=== PATIENT | male | born 1980 | race Caucasian/White ===

== ENCOUNTER 2020-04-23 06:22 | Emergency (ER) | payer MEDICARE, SELFPAY ==
[2020-04-23 07:05] VITALS: BP 150/50; PULSE 110; RESP 18; TEMP 36.9; O2SAT 95; BMI 28.2
--- NOTE | 2020-04-23 07:21 | PC.NURSE ---
PT NOT IN THE WR
== END 2020-04-23 07:50 | disposition left against medical advice (07) ==
LOC: HO.ED 07:45
PROVIDERS: Emergency Provider Emergency Medicine
DX: L08.89 Other specified local infections of the skin and subcutaneous tissue (principal)
CPT/HCPCS: 99281; 99282

== ENCOUNTER 2020-04-23 10:52 | Emergency (ER) | payer MEDICARE, SELFPAY ==
--- NOTE | ~2020-04-23 | XR_ITS ---
EXAMINATION: XR HAND, LEFT CLINICAL INFORMATION: Evaluate for foreign body COMPARISON: None TECHNIQUE: PA, lateral, and oblique views of the left hand. FINDINGS: Prominent dorsal soft tissue swelling with no soft tissue gas or radiopaque foreign body. Normal alignment with no fracture. XR/XR hand LT min 3V IMPRESSION: Prominent dorsal soft tissue swelling of the hand with no foreign body or soft tissue gas demonstrated.
[2020-04-23 10:54] VITALS: BP 145/81; PULSE 100; RESP 18; TEMP 36.7; O2SAT 97; BMI 27.4
--- NOTE | 2020-04-23 11:21 | PC.NURSE ---
ATTEMPTED TO DRAW BLOOD FROM PT. PT REFUSED AT THIS TIME.
--- NOTE | 2020-04-23 11:22 | PC.NURSE ---
PT DECLINED TO HAVE LABS DRAWN IN WR FOR UNK REASON.
[2020-04-23 12:17] LABS: MANUAL DIFF FLAG NO
[2020-04-23 12:20] LABS: Basophils Percent Auto 0.3 % (0-2); Eosinophils Absolute Auto 0.1 X10*3/uL (0.0-0.4); Eosinophils Percent Auto 1.1 % (0-4); Hematocrit 36.1 % (42-52); Hemoglobin 12.8 g/dl (14.0-18.0); Imm Gran Abs Auto 0.03 X10*3/uL (0.00-0.03); Imm Gran Pct Auto 0.2 % (0.0-0.4); Lymphocytes Absolute Auto 2.6 X10*3/uL (1.2-4.9); Lymphocytes Percent Auto 21.2 % (20-40); Mean Corpuscular HGB Conc 35.5 g/dl (31.0-36.0); Mean Corpuscular Hemoglobin 32.1 pg (27.0-33.0); Mean Corpuscular Volume 90.5 fL (80-98); Mean Platelet Volume 9.2 fL (9.4-12.4); Monocytes Absolute Auto 1.3 X10*3/uL (0.1-1.2); Monocytes Percent Auto 10.5 % (2-11); Neutrophils Absolute Auto 8.2 X10*3/uL (2.0-8.3); Neutrophils Percent Auto 66.7 % (45-73); Platelet Count 253 X10*3/uL (160-400); Red Blood Count 3.99 X10*6/uL (4.60-5.80); Red Cell Distribution Width 12.7 % (11.0-16.0); White Blood Count 12.3 X10*3/uL (4.8-10.8)
[2020-04-23 12:41] LABS: Lactic Acid 0.7 mmol/L (0.5-2.0)
[2020-04-23 12:47] LABS: Alanine Aminotransferase 33 U/L (0-40); Albumin Level 3.3 g/dL (3.5-5.0); Alkaline Phosphatase 70 U/L (39-117); Anion Gap 11 (12-20); Aspartate Amino Transferase 46 U/L (5-37); Bilirubin Direct 0.2 mg/dL (0.0-0.5); Bilirubin Total 0.4 mg/dL (0.0-1.0); Blood Urea Nitrogen 12 mg/dL (9-16); Carbon Dioxide 28 mmol/L (22-29); Chloride 103 mmol/L (96-108); Creatinine Clr Calc Pharmacy 109.2; Estimated Glomerular Filt Rate > 60; Glucose Random 108 mg/dL (60-115); Potassium 3.4 mmol/L (3.3-5.1); Sodium 139 mmol/L (135-145); Total Protein 5.9 g/dL (6.5-8.0)
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
[2020-04-23] MEDS: oxyCODONE HCl Immed Release 5 MG TABLET PO (12:59)
[2020-04-23] MEDS: Piperacillin Sodium/Tazobactam 3.375 GM in 0.9 % Sodium Chloride 50 ML IV (13:01)
[2020-04-23] MEDS: Lidocaine 4 % Cream KIT 1 APPL TOPICAL (13:02)
[2020-04-23] MEDS: Lidocaine HCl 2 % MPF 5 ML VIAL INFILTRATI (13:03)
[2020-04-23] MEDS: LORazepam 2 MG/ML VIAL IVPUSH (13:03)
[2020-04-23 13:23] VITALS: BP 152/98; PULSE 103; RESP 16; O2SAT 98
[2020-04-23] MEDS: 0.9 % Sodium Chloride 1,000 ML 999 ML IVCONT (13:35)
[2020-04-23] MEDS: vancomycin HCL 1,000 MG in 0.9 % Sodium Chloride 250 ML 270 MG IV (13:43)
--- NOTE | 2020-04-23 14:23 | PC.NURSE ---
Pt removed own IV and declining another one.
[2020-04-23] MEDS: cephALEXin 500 MG CAPSULE PO (14:32)
== END 2020-04-23 14:38 | disposition left against medical advice (07) ==
PROVIDERS: Emergency Provider Emergency Medicine
DX: L03.114 Cellulitis of left upper limb (principal); L02.512 Cutaneous abscess of left hand; S60.512A Abrasion of left hand, initial encounter; M79.642 Pain in left hand; F10.20 Alcohol dependence, uncomplicated; F11.10 Opioid abuse, uncomplicated; Y90.9 Presence of alcohol in blood, level not specified; Z79.899 Other long term (current) drug therapy; Z23 Encounter for immunization
CPT/HCPCS: 10060; 36415; 73130; 80048; 80076; 83605; 83735; 85025; 87040; 90471; 90715; 96361; 96365; 96367; 96375; 99283; 99291; J2060; J2543; J3370

== ENCOUNTER 2020-04-26 01:30 | Emergency (ER) | payer MEDICARE, SELFPAY ==
[2020-04-26 03:01] VITALS: BP 122/73; PULSE 92; RESP 20; TEMP 35.7; O2SAT 99; BMI 28.2
--- NOTE | 2020-04-26 03:09 | PC.NURSE ---
refused to start lab work in waiting room.
== END 2020-04-26 04:03 | disposition left against medical advice (07) ==
PROVIDERS: Emergency Provider Emergency Medicine
DX: M79.89 Other specified soft tissue disorders (principal)
CPT/HCPCS: 99282; 99283

== ENCOUNTER 2020-05-29 04:33 | Emergency (ER) | payer OTHER, MEDICARE, SELFPAY ==
[2020-05-29 04:40] VITALS: BP 132/82; PULSE 90; RESP 20; TEMP 36.4; O2SAT 96; BMI 27.4
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
--- NOTE | 2020-05-29 06:00 | PC.NURSE ---
PT STATES I CAN'T WAIT ANY LONGER, I NEED TO TAKE A BUS AT 6AM. PT WAS GIVEN SEVERAL CUPS OF JUICE, AND A SANDWICH. PT WAS ENCOURAGED TO STAY, PT REPORTS HE CAN'T WAIT AND WALKS OUT OF ER.
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
== END 2020-05-29 06:27 | disposition left against medical advice (07) ==
PROVIDERS: Emergency Provider Student in an Organized Health Care Education/Training Program
DX: H57.13 Ocular pain, bilateral (principal)
CPT/HCPCS: 99283

== ENCOUNTER 2021-11-28 04:45 | Emergency (ER) | payer OTHER, MEDICARE, SELFPAY ==
[2021-11-28 05:02] VITALS: BP 132/74; BP 156/88; PULSE 85; PULSE 88; RESP 19; TEMP 36.7; O2SAT 97; O2SAT 98; BMI 30.8
--- NOTE | 2021-11-28 05:14 | ED.PSYCH ---
HPI - Psych General Chief Complaint: ETOH/Substance Use Stated Complaint: CRISIS Time Seen by Provider: 11/28/21 05:13 Source: patient Mode of arrival: EMS Limitations: no limitations History of Present Illness HPI Narrative: Patient has been up smoking crack, has not slept in a while. He feels disorganized he feels that he is also agitated and seeing things. Patient feels things are out of control. complaint: substance abuse Onset (ago): week(s) Duration: constant Relieving factors: none Exacerbating factors: none Context: recent drug abuse Associated psychiatric symptoms: racing thoughts Associated symptoms: confusion Treatments prior to arrival: none Related Data Previous Rx's Medication Instructions Recorded cephalexin 500 mg capsule 500 mg PO BID 10 days #20 caps 04/23/20 doxycycline monohydrate 100 mg 100 mg PO BID 10 days #20 caps 04/23/20 capsule Allergies Allergy/AdvReac Type Severity Reaction Status Date / Time sildenafil [From VIAGRA] Allergy Mild UNKNOWN Verified 05/29/20 04:39 Penicillins [PCN] Allergy Unknown Verified 05/29/20 04:39 Review of Systems Review of Systems: Yes Unobtainable due to mental status Neurologic: Denies Sensory deficit (Neuro) COUNTS INCLUDE 234 BEDS AT THE [facility] Social History Social History Alcohol intake: current Alcohol intake frequency: 3 or more drinks per day Alcohol type: beer and hard liquor Substance Use Type: Crack/Cocaine and Marijuana Substance Use Frequency: Occasionally Physical Exam Vital Signs: Vital Signs: Last Vital Signs Temp 98.1 F 11/28/21 05:02 Pulse 93 11/28/21 07:18 Resp 17 11/28/21 07:18 BP 141/92 H 11/28/21 07:18 Pulse Ox 98 11/28/21 07:18 O2 Del Method 11/28/21 07:18 BMI result Body Mass Index 30.8 Const: Other: disorganized, unkept Nutritional Appearance: average body habitus Orientation/consciousness: oriented to person Limitations: no limitations HEENT: Head: Yes normal to inspection Ears: external ears normal General nose exam: Normal external nose present Mouth: Normal oral and palatal mucosa present and oropharynx normal Throat: Yes posterior oropharynx normal Eyes: General: appearance normal, both eyes and all related structures Neck: Other: supple Neck: Yes normal visual inspection Chest: Chest palpation & inspection: normal inspection of the chest Resp: Auscultation: clear to auscultation bilaterally Cardio: Jugular venous distension: no JVD Rate: regular rate Rhythm: regular rhythm Heart sounds: S1 normal heart sound present and S2 normal heart sound present GI: Inspection: Yes normal to inspection Palpation (GI): Soft to palpation, nontender and No hepatosplenomegaly present Auscultation: normal bowel sounds : General: Yes no CVA tenderness Back/Spine/Pelvis: Back: no CVA tenderness Skin: General skin exam: no rashes or lesions noted Neuro: General: oriented to person Cranial nerves: Yes CN's II-XII intact bilaterally Motor exam (neuro): 5/5 motor strength present throughout Sensory Exam: No Sensory deficit (Neuro) Extrem: General: Yes normal to inspection Psych: Other: disorganized slightly agitated Course Reevaluation(s) Reevaluation #1: patient to be evaluated by CARE team for substance abuse and disorganized thoughts, will place in physician observation, patient is currently calm Time: 07:29 [facility] - Psych Lab Data Labs: Lab Results 11/28/21 11/28/21 Range/Units 05:26 05:26 Urine Color Yellow Urine Appearance Cloudy Urine pH 5.5 (5.0-9.0) Ur Specific [place] >= 1.030 H (1.005-1.025) Urine Protein Trace (Neg-Trace) mg/dL Urine Glucose (UA) Negative (Negative) mg/dL Urine Ketones Trace (Negative) mg/dL Urine Blood Negative (Negative) Urine Nitrite Negative (Negative) Ur Leukocyte Esterase Trace H (Negative) Urine RBC 0-2 (0-2) /HPF Urine WBC 6-10 H (0-5) /HPF Ur Squamous Epith Cells 0-2 (0-2) /HPF Urine Bacteria None Seen (None Seen) Hyaline Casts 0-2 (0-2) /LPF Urine Opiates Screen Not Detected (Not Detect) Urine Fentanyl Screen POSITIVE H (Not Detect) Ur Barbiturates Screen Not Detected (Not Detect) Ur Phencyclidine Scrn Not Detected (Not Detect) Ur Amphetamines Screen Not Detected (Not Detect) U Benzodiazepines Scrn Not Detected (Not Detect) Urine Cocaine Screen POSITIVE H (Not Detect) U Marijuana (THC) Screen POSITIVE H (Not Detect) Discharge Plan Discharge Clinical Impression: Polysubstance (including opioids) dependence with physiol dependence, Disorganized behavior Patient Disposition: Still a Patient Prescriptions: No Action doxycycline monohydrate 100 mg capsule 100 mg PO BID 10 Days Qty: 20 0RF cephalexin 500 mg capsule 500 mg PO BID 10 Days Qty: 20 0RF
[2021-11-28 05:33] LABS: Appearance Urine Cloudy; Color Urine Yellow; Glucose Urine UA Negative (Negative); Leukocyte Esterase Urine Trace (Negative); Nitrite Urine Negative (Negative); PH 5.5 (5.0-9.0); Specific Gravity - Urine >= 1.030 (1.005-1.025); Urine Blood Negative (Negative); Urine Ketones Trace mg/dL (Negative); Urine Protein Trace mg/dL (Neg-Trace)
[2021-11-28 05:38] LABS: Bacteria Urine None Seen (None Seen); Hyaline Casts Urine 0-2 /LPF (0-2); RBC Urine 0-2 /HPF (0-2); Squamous Epithelial Cell Urine 0-2 /HPF (0-2)
[2021-11-28 05:50] LABS: Amphetamine Screen Urine Not Detected (Not Detect); Barbiturates, Urine Not Detected (Not Detect); Benzodiazepines Screen Urine Not Detected (Not Detect); Cannabinoid Screen Urine POSITIVE (Not Detect); Cocaine Screen Urine POSITIVE (Not Detect); Fentanyl, urine POSITIVE (Not Detect); Opiate Screen Urine Not Detected (Not Detect); Phencyclidine Screen Urine Not Detected (Not Detect)
--- NOTE | 2021-11-28 05:55 | PC.NURSE ---
Patient is alert to self and place. Patient is talkative, mild agitation noted. Patient declined IV line placement/blood draw despite explanation of importance of lab draw for diagnostic conclusion and need for IV line for pain management. Dr. Burkett will put order for oral pain medication to manage painful blisters to b/l feet.
--- NOTE | 2021-11-28 05:56 | PC.NURSE ---
Patient refused lab draw ,Mindy rachel and Md srinivasan is aware .
[2021-11-28 05:59] VITALS: BP 143/93; PULSE 77; RESP 17; O2SAT 98
[2021-11-28] MEDS: Acetaminophen 325 MG TABLET 975 MG PO (06:12)
--- NOTE | 2021-11-28 06:46 | PC.NURSE ---
Pt. refusing heart monitor/continues to pull leads off of his chest
[2021-11-28 07:18] VITALS: BP 141/92; PULSE 93; RESP 17; O2SAT 98
--- NOTE | 2021-11-28 08:35 | PC.NURSE ---
pt refused labs at 0726 on 11/28/2021 rn is aware
--- NOTE | 2021-11-28 09:35 | MHC.RECOVRN ---
Briefly met with pt in ED18, pt presented after using crack cocaine, INH. Pt not interested in ATS at this time. Pt inquiring about harm reduction, discussed Tapestry and safer smoking. Pt declines further discussion regarding KAM. RN aware.
== END 2021-11-28 10:04 | disposition home or self-care (01) ==
PROVIDERS: Emergency Provider Emergency Medicine
DX: F19.20 Other psychoactive substance dependence, uncomplicated (principal); F91.9 Conduct disorder, unspecified; F11.20 Opioid dependence, uncomplicated; F10.20 Alcohol dependence, uncomplicated; Y90.9 Presence of alcohol in blood, level not specified; Z79.899 Other long term (current) drug therapy
CPT/HCPCS: 80307; 81001; 99284

== ENCOUNTER 2022-06-19 12:13 | Emergency (ER) | payer MEDICARE, MEDICAID, SELFPAY ==
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
[2022-06-19 12:51] VITALS: BMI 27.4
--- NOTE | 2022-06-19 12:51 | ED.GENADULT ---
HPI - General Adult General Chief complaint: Psychiatric Symptoms Stated complaint: SEC [employer] THREATENING HARM, W/[employer] FOR SAFETY, Time Seen by Provider: 06/19/22 12:25 Source: patient and EMS Mode of arrival: EMS Limitations: no limitations History of Present Illness HPI narrative: Patient is a 42 year old assigned male at with a history of IV drug abuse presenting to the emergency department today after an argument with an individual. Patient states that he got into an argument with a woman over dog food and then ended up here. EMS states that the patient was threatening to fight police on scene. Patient denies any dizziness, lightheadedness, abdominal pain, nausea, vomiting, fever, chills, blurry vision, double vision, loss of vision, chest pain, difficulty breathing, shortness of breath, back pain, night sweats, pain with urination, increased urinary frequency, increased urinary urgency, blood in his urine or stool, syncope or a near syncopal episode, recent trauma or falls, bowel incontinence, bladder incontinence, bowel retention, bladder retention, or any other complaints at this time. Onset (ago): minute(s) Severity: moderate Severity scale (1-10): 4 Relieving factors: none Exacerbating factors: none Associated symptoms: denies other symptoms Treatments prior to arrival: none Related Data Previous Rx's Medication Instructions Recorded cephalexin 500 mg capsule 500 mg PO BID 10 days #20 caps 04/23/20 doxycycline monohydrate 100 mg 100 mg PO BID 10 days #20 caps 04/23/20 capsule Allergies Allergy/AdvReac Type Severity Reaction Status Date / Time sildenafil [From VIAGRA] Allergy Mild UNKNOWN Verified 05/29/20 04:39 Penicillins [PCN] Allergy Unknown Verified 05/29/20 04:39 Review of Systems Constitutional: Constitutional: Reports no additional constitutional complaints, Denies chills, Denies fever(s) and Denies night sweats Eyes: Eyes: Reports no additional eye complaints, Denies blurry vision, Denies change in vision, Denies diplopia, Denies eye discharge, Denies loss of vision and Denies eye pain ENT: Denies dizziness Cardiovascular: Cardiovascular: Reports no additional cardiovascular complaints, Denies chest pain, Denies lightheadedness, Denies Loss of Consciousness and Denies dyspnea Respiratory: Respiratory: Reports no additional respiratory complaints and Denies dyspnea Gastrointestinal: Gastrointestinal: Reports no additional gastrointestinal complaints, Denies abdominal pain, Denies melena, Denies hematochezia, Denies change in bowel habits and Denies change in stool character Genitourinary: Genitourinary: Reports no additional male genitourinary complaints, Denies hematuria, Denies oliguria, Denies difficulty urinating, Denies dysuria, Denies urinary frequency, Denies urinary hesitancy, Denies urinary incontinence and Denies urinary urgency Musculoskeletal: Musculoskeletal: Reports no additional musculoskeletal complaints, Denies numbness and Denies tingling Neurologic: Denies dizziness, Denies loss of vision, Denies numbness and Denies tingling Psychiatric: Psychiatric: Reports irritability and Reports homicidal ideation Endocrine: Endocrine: Reports no additional endocrine complaints Hematologic/Lymphatic: Hematologic/Lymphatic: Reports no additional hematologic/lymphatic complaints Allergic/Immunologic: Allergic/Immunologic: Reports no additional allergic/immunologic complaints [facility] Past Medical History Attestation statement: The following information was validated with the patient. Source: old records reviewed and nursing notes reviewed Social History Social History Alcohol intake: former Smoked in Last 30 Days: Yes Substance Use Type: Crack/Cocaine and Marijuana Advance Directives: No Advance Directives Information Provided: No Physical Exam ED Vital Signs: BMI result Body Mass Index 27.4 Const General: cooperative, no acute distress, alert and awake Nutritional Appearance: well nourished Orientation/consciousness: patient oriented x3 Limitations: no limitations [facility] Head: Yes normal to inspection and Yes atraumatic Ears: hearing grossly normal bilaterally and external ears normal General nose exam: Normal external nose present, no nasal discharge noted and no epistaxis Face and sinus: Yes normal facial exam, No abrasion and No laceration Mouth: Normal oral and palatal mucosa present, no drooling and no muffled voice Eyes General: appearance normal, both eyes and all related structures Periorbital: periorbital findings normal Eyelids: Yes eyelids normal Conjunctivae: conjunctivae normal Pupils: Equal, round and reactive pupils present EOM: EOMs intact bilaterally Neck Neck: Yes normal visual inspection, Yes full ROM and Yes no lymphadenopathy Chest Chest palpation & inspection: normal inspection of the chest Resp Effort & Inspection: normal respiratory effort and able to speak in complete sentences Auscultation: clear to auscultation bilaterally Cardio Rate: regular rate Rhythm: regular rhythm GI Inspection: Yes normal to inspection Palpation (GI): Soft to palpation, not firm, nontender and no guarding Neuro General: patient oriented x3 and moves all extremities Cranial nerves: Yes Equal, round and reactive pupils present Cognition (Neuro): normal cognition Motor exam (neuro): 5/5 motor strength present throughout Sensory Exam: Normal double simultaneous stimulation for sensation Coordination: [id number] test normal Extrem General: Yes normal to inspection, Yes full ROM and Yes capillary refill normal Psych Speech and movement: Normal speech and movement present Affect: Irritable affect present Attitude: Belligerent attititude/behavior present Thought process: Racing thoughts present Thought content: Homicidality present Medications Administered Discontinued Medications Generic Name Dose Route Start Last Admin Trade Name Freq PRN Reason Stop Dose Admin Haloperidol Lactate 5 mg 06/19/22 13:00 06/19/22 14:04 Haloperidol Lactate 5 Mg/Ml Vial IM 06/19/22 13:01 Not Given STAT STA Lorazepam 2 mg 06/19/22 13:10 06/19/22 13:10 Lorazepam 2 Mg/Ml Vial IM 06/19/22 13:11 2 mg STAT STA Administration Medical Decision Making Medical Decision Making [facility] Narrative: Patient is a 42 year old assigned male at with a history of IV drug use presenting to the emergency department today after an aggressive interaction. Patient's physical exam showed an obviously agitated individual with racing thoughts. Patient's blood work is pending. Patient was given IM Ativan and has continued to rest. Patient will need to be evaluated by CARE team prior to disposition. Critical Care Time Critical Care Time Critical Care Time: Yes Total Critical Care Time: 30 Attestation: I spent 30 minutes of Critical Care Time with this patient. This does not include time spent on separately reported billable procedures. Discharge Plan Discharge Clinical Impression: Acute psychosis Patient Disposition: Still a Patient Prescriptions: No Action doxycycline monohydrate 100 mg capsule 100 mg PO BID 10 Days Qty: 20 0RF cephalexin 500 mg capsule 500 mg PO BID 10 Days Qty: 20 0RF Interventions: [place]-Suicide Risk Severity Scale Last Done: 06/19/22 13:02
--- NOTE | 2022-06-19 12:56 | PC.NURSE ---
PT ARRIVED WITH ERRATIC BEHAVIOR, HYPER VERBAL
[2022-06-19] MEDS: LORazepam 2 MG/ML VIAL IM (13:10)
--- NOTE | 2022-06-19 16:59 | PC.NURSE ---
Pt remains sleeping.
--- NOTE | 2022-06-19 18:05 | PC.NURSE ---
Mother called and reports she is out of town. She claims Pt has a Hx of starting at 13 y/o. He was Dx with ADHD, Bipolar, and poly-substance abuse. She reports he was a heavy drug user, violent, verbally aggressive making raciest comments. Apparently, she had him sectioned with a criminal justice social worker and he was in a special Unit at [facility] due to pending charge. Mother wishes him to be committed because she feels he hangs out with a rough crowd and he is dangerous to others.
[2022-06-19] MEDS: OLANZapine 5 MG TABLET PO (21:38)
[2022-06-19] MEDS: LORazepam 1 MG TABLET 2 MG PO (21:38)
[2022-06-19 22:01] LABS: MANUAL DIFF FLAG NO
[2022-06-19 22:02] LABS: Basophils Absolute Auto 0.1 X10*3/uL (0.0-0.2); Basophils Percent Auto 1.3 % (0-2); Eosinophils Absolute Auto 0.8 X10*3/uL (0.0-0.4); Eosinophils Percent Auto 10.5 % (0-4); Hematocrit 46.1 % (42.0-52.0); Hemoglobin 15.3 g/dl (14.0-18.0); Imm Gran Abs Auto 0.07 X10*3/uL (0.00-0.03); Imm Gran Pct Auto 0.9 % (0.0-0.4); Lymphocytes Absolute Auto 2.6 X10*3/uL (1.2-4.9); Lymphocytes Percent Auto 34.2 % (20-40); Mean Corpuscular HGB Conc 33.2 g/dl (31.0-36.0); Mean Corpuscular Hemoglobin 29.7 pg (27.0-33.0); Mean Corpuscular Volume 89.5 fL (80.0-98.0); Mean Platelet Volume 9.7 fL (9.4-12.4); Monocytes Absolute Auto 0.9 X10*3/uL (0.1-1.2); Monocytes Percent Auto 11.8 % (2-11); Neutrophils Absolute Auto 3.1 x10*3/uL (2.0-8.3); Neutrophils Percent Auto 41.3 % (45-73); Platelet Count 318 X10*3/uL (160-400); Red Blood Count 5.15 X10*6/uL (4.60-5.80); Red Cell Distribution Width 12.2 % (11.0-16.0); White Blood Count 7.6 X10*3/uL (4.8-10.8)
[2022-06-19 22:07] LABS: COVID-19 Test Negative (Negative); IDNOW Serial# 08D9AD1C
[2022-06-19 22:19] LABS: Acetaminophen LAB < 17 mcg/mL (<30); Alanine Aminotransferase 39 U/L (0-40); Albumin Level 4.2 g/dL (3.5-5.0); Alkaline Phosphatase 81 U/L (39-117); Anion Gap 12 (12-20); Aspartate Amino Transferase 33 U/L (5-37); Bilirubin Total 0.6 mg/dL (0.0-1.0); Blood Urea Nitrogen 15 mg/dL (9-16); Calcium 9.6 mg/dL (8.4-10.2); Carbon Dioxide 29 mmol/L (22-29); Chloride 104 mmol/L (96-108); Creatinine Clr Calc Pharmacy 84.4; Estimated Glomerular Filt Rate > 60; Ethanol < 10 mg/dL; Glucose Random 101 mg/dL (60-115); Potassium 4.7 mmol/L (3.3-5.1); Salicylate < 5.0 mg/dL (15-30); Sodium 140 mmol/L (135-145); Total Protein 7.6 g/dL (6.5-8.0)
[2022-06-19 22:24] VITALS: BP 129/85; PULSE 104; RESP 20; TEMP 36.8; O2SAT 99
[2022-06-20] MEDS: LORazepam 1 MG TABLET 2 MG PO (02:14)
--- NOTE | 2022-06-20 06:24 | PC.NURSE ---
Patient slept through the night, no distress observed/reported, behavior loud and disruptive, verbally abusive without any filter, Olanzapine 5 mg po and ativan 2 mg po administered at 2138 with + effect, agreed to covid swab and blood draw, pending urine sample at this time, VSS, pending care team assessment, will continue to monitor.
[2022-06-20 06:47] VITALS: RESP 17
--- NOTE | 2022-06-20 07:13 | PC.NURSE ---
patient appears to remain asleep at present respirations are even and unlabored patient appears in no distress
[2022-06-20 12:07] LABS: Appearance Urine Cloudy; Color Urine Dark Yellow; Glucose Urine UA Negative (Negative); Leukocyte Esterase Urine Moderate (2+) (Negative); Nitrite Urine Negative (Negative); PH 6.5 (5.0-9.0); Specific Gravity - Urine >= 1.030 (1.005-1.025); UMIC TRIGGER UA YES; Urine Blood Negative (Negative); Urine Ketones Negative (Negative); Urine Protein Negative (Neg-Trace)
[2022-06-20 12:20] LABS: Amphetamine Screen Urine Not Detected (Not Detect); Barbiturates, Urine Not Detected (Not Detect); Benzodiazepines Screen Urine Not Detected (Not Detect); Cannabinoid Screen Urine POSITIVE (Not Detect); Cocaine Screen Urine POSITIVE (Not Detect); Fentanyl, urine Not Detected (Not Detect); Opiate Screen Urine Not Detected (Not Detect); Phencyclidine Screen Urine Not Detected (Not Detect)
--- NOTE | 2022-06-20 14:31 | PC.NURSE ---
Pt slept most of the day. Ate breakfast. Woke again to use the bathroom. Urine sample obtained.
[2022-06-20 14:33] LABS: Bacteria Urine None Seen (None Seen); Hyaline Casts Urine 0-2 /LPF (0-2); RBC Urine 0-2 /HPF (0-2); Squamous Epithelial Cell Urine 0-2 /HPF (0-2); WBC Urine 21-50 /HPF (0-5)
--- NOTE | 2022-06-20 15:47 | PC.NURSE ---
Pt awake, irritable edge, ambulating around pod with steady gait. Pt stating I feel normal again now, I want to go home Care team at bedside.
--- NOTE | 2022-06-20 16:14 | PC.NURSE ---
Pt irritable, perseverating on when he can leave and becoming angry when no definitive answer can be given. Awaiting dispo info at this time from CARE team. Pt repeatedly snorting and spitting into the sink. Angrily muttering racial slurs to himself.
--- NOTE | 2022-06-20 16:31 | MHC.EDTECH ---
t/w unable to perform EKG at this time d/t patient's belligerent behavior. will attempt later once patient is more calm and cooperative.
== END 2022-06-20 18:44 | disposition home or self-care (01) ==
PROVIDERS: Physician Assistant Medical; Emergency Provider Emergency Medicine Emergency Medical Services
DX: F19.10 Other psychoactive substance abuse, uncomplicated (principal); F23 Brief psychotic disorder; R45.1 Restlessness and agitation; R45.850 Homicidal ideations; Z20.822 Contact with and (suspected) exposure to COVID-19; F10.20 Alcohol dependence, uncomplicated; Y90.0 Blood alcohol level of less than 20 mg/100 ml; Z79.899 Other long term (current) drug therapy
CPT/HCPCS: 36415; 80053; 80143; 80179; 80307; 81001; 82077; 85025; 87635; 96372; 99284; 99285; J2060; S9485

== ENCOUNTER 2022-09-09 21:42 | Emergency (ER) | payer OTHER, MEDICAID, MEDICARE, SELFPAY ==
[2022-09-09 21:54] VITALS: BP 155/100; PULSE 100; RESP 20; TEMP 37.3; O2SAT 97; BMI 29.0
--- NOTE | 2022-09-09 22:28 | ED_ITS ---
HPI - Anxiety General Chief Complaint: Anxiety Stated Complaint: anxiety Time Seen by Provider: 09/09/22 22:04 History of Present Illness HPI narrative: Patient is a 47-year-old male with a history of anxiety. [place] to go to the [place]. Patient has a history of polysubstance abuse. He denies any suicidal homicidal ideation. Patient denies any chest pain no systemic complaints. Previous history of alcohol use and also history of IV drug use. Related Data Home Medications Medication Instructions Recorded Confirmed No Known Home Meds 09/10/22 09/10/22 Allergies Allergy/AdvReac Type Severity Reaction Status Date / Time sildenafil [From VIAGRA] Allergy Mild UNKNOWN Verified 05/29/20 04:39 Penicillins [PCN] Allergy Unknown Verified 05/29/20 04:39 Review of Systems Review of Systems: No chest pain or diaphoresis no focal weakness Yes all other systems are reviewed and are negative [facility] Past Medical History Attestation statement: The following information was validated with the patient. Social History Social History Alcohol intake: former Substance Use Type: Crack/Cocaine and Marijuana Advance Directives: No Advance Directives Information Provided: No Physical Exam Vital Signs: Vital Signs: Last Vital Signs Temp 98 F 09/10/22 06:06 Pulse 83 09/10/22 06:06 Resp 18 09/10/22 06:06 BP 119/79 09/10/22 06:06 Pulse Ox 95 09/10/22 06:06 O2 Del Method Room Air 09/10/22 06:06 BMI result Body Mass Index 29.0 Appearance: Alert. Oriented X3. No acute distress. Eyes: Pupils equal, round and reactive to light. ENT: Pharynx normal. Neck: Normal inspection. Neck supple. No lymph nodes noted. No crepitus CVS: Normal heart rate and rhythm. Pulses normal. Normal S1 and S2 Respiratory: No respiratory distress. Breath sounds normal. No Wheezing. No rales Abdomen: Soft and nontender. No rigidity. No distention. good BS x4 Skin: Skin warm and dry. Normal skin color. Normal skin turgor. Extremities: No lower extremity edema. Neurovascular intact to all extremities. No Lacerations. No Rash Neuro: Oriented X 3. No motor deficit. No sensory deficit. Moving all extermities. No slurred speech. Cranial nerve intact Medications Administered Discontinued Medications Generic Name Dose Route Start Last Admin Trade Name Luis PRN Reason Stop Dose Admin Lorazepam 1 mg 09/09/22 22:30 09/09/22 22:34 Lorazepam 1 Mg Tablet PO 09/09/22 22:31 1 mg ONCE ONE Administration Medical Decision Making Medical Decision Making [facility] Narrative: patient well appearing no acute distress. Not suicidal not homicidal. Feels extremely anxious. Wants to be evaluated by care team for possible transfer [place] the [place]. Differential Diagnosis Differential Diagnoses: The differential diagnosis associated with the pre sentation includes anxiety Lab Data 09/09/22 22:57 09/09/22 22:57 Labs: Lab Results 09/09/22 09/09/22 09/09/22 Range/Units 22:57 22:57 23:02 WBC 7.3 (4.8-10.8) X10*3/uL RBC 4.64 (4.60-5.80) X10*6/uL Hgb 13.9 L (14.0-18.0) g/dl Hct 39.6 L (42.0-52.0) % MCV 85.3 (80.0-98.0) fL MCH 30.0 (27.0-33.0) pg MCHC 35.1 (31.0-36.0) g/dl RDW 14.0 (11.0-16.0) % Plt Count 231 D (160-400) X10*3/uL MPV 9.0 L (9.4-12.4) fL Immature Gran % (Auto) 0.3 (0.0-0.4) % Neut % (Auto) 55.4 (45-73) % Lymph % (Auto) 31.1 (20-40) % [place] % (Auto) 10.5 (2-11) % Eos % (Auto) 1.9 (0-4) % Baso % (Auto) 0.8 (0-2) % Lymph # (Auto) 2.3 (1.2-4.9) X10*3/uL [place] # (Auto) 0.8 (0.1-1.2) X10*3/uL Eos # (Auto) 0.1 (0.0-0.4) X10*3/uL Baso # (Auto) 0.1 (0.0-0.2) X10*3/uL Abs Immat Gran (auto) 0.02 (0.00-0.03) X10*3/uL Absolute Neuts (auto) 4.0 (2.0-8.3) x10*3/uL Absolute Nucleated RBC 0.000 (0.0-0.012) X10*3/uL Nucleated RBC % (auto) 0.0 (0.0-0.2) /100WBC Sodium 137 (135-145) mmol/L Potassium 3.6 D (3.3-5.1) mmol/L Chloride 101 (96-108) mmol/L Carbon Dioxide 27 (22-29) mmol/L Anion Gap 13 (12-20) BUN 21 H (9-16) mg/dL Creatinine 0.91 (0.5-1.4) mg/dL Estim Creat Clear Calc 105.0 Estimated GFR > 60 Random Glucose 97 (60-115) mg/dL Calcium 9.6 (8.4-10.2) mg/dL Total Bilirubin 0.7 (0.0-1.0) mg/dL AST 61 H (5-37) U/L ALT 69 H (0-40) U/L Alkaline Phosphatase 99 (39-117) U/L Total Protein 7.9 (6.5-8.0) g/dL Albumin 4.2 (3.5-5.0) g/dL Urine Color Urine Appearance Urine pH (5.0-9.0) Ur Specific [place] (1.005-1.025) Urine Protein (Neg-Trace) mg/dL Urine Glucose (UA) (Negative) mg/dL Urine Ketones (Negative) mg/dL Urine Blood (Negative) Urine Nitrite (Negative) Ur Leukocyte Esterase (Negative) Urine Opiates Screen Not Detected (Not Detect) Urine Fentanyl Screen POSITIVE H (Not Detect) Ur Barbiturates Screen Not Detected (Not Detect) Ur Phencyclidine Scrn POSITIVE H (Not Detect) Ur Amphetamines Screen Not Detected (Not Detect) U Benzodiazepines Scrn Not Detected (Not Detect) Urine Cocaine Screen POSITIVE H (Not Detect) U Marijuana (THC) Screen POSITIVE H (Not Detect) Ethyl Alcohol < 10 mg/dL 09/09/22 Range/Units 23:02 WBC (4.8-10.8) X10*3/uL RBC (4.60-5.80) X10*6/uL Hgb (14.0-18.0) g/dl Hct (42.0-52.0) % MCV (80.0-98.0) fL MCH (27.0-33.0) pg MCHC (31.0-36.0) g/dl RDW (11.0-16.0) % Plt Count (160-400) X10*3/uL MPV (9.4-12.4) fL Immature Gran % (Auto) (0.0-0.4) % Neut % (Auto) (45-73) % Lymph % (Auto) (20-40) % [place] % (Auto) (2-11) % Eos % (Auto) (0-4) % Baso % (Auto) (0-2) % Lymph # (Auto) (1.2-4.9) X10*3/uL [place] # (Auto) (0.1-1.2) X10*3/uL Eos # (Auto) (0.0-0.4) X10*3/uL Baso # (Auto) (0.0-0.2) X10*3/uL Abs Immat Gran (auto) (0.00-0.03) X10*3/uL Absolute Neuts (auto) (2.0-8.3) x10*3/uL Absolute Nucleated RBC (0.0-0.012) X10*3/uL Nucleated RBC % (auto) (0.0-0.2) /100WBC Sodium (135-145) mmol/L Potassium (3.3-5.1) mmol/L Chloride (96-108) mmol/L Carbon Dioxide (22-29) mmol/L Anion Gap (12-20) BUN (9-16) mg/dL Creatinine (0.5-1.4) mg/dL Estim Creat Clear Calc Estimated GFR Random Glucose (60-115) mg/dL Calcium (8.4-10.2) mg/dL Total Bilirubin (0.0-1.0) mg/dL AST (5-37) U/L ALT (0-40) U/L Alkaline Phosphatase (39-117) U/L Total Protein (6.5-8.0) g/dL Albumin (3.5-5.0) g/dL Urine Color Yellow Urine Appearance Clear Urine pH 5.5 (5.0-9.0) Ur Specific [place] >= 1.030 H (1.005-1.025) Urine Protein Negative (Neg-Trace) mg/dL Urine Glucose (UA) Negative (Negative) mg/dL Urine Ketones Negative (Negative) mg/dL Urine Blood Negative (Negative) Urine Nitrite Negative (Negative) Ur Leukocyte Esterase Negative (Negative) Urine Opiates Screen (Not Detect) Urine Fentanyl Screen (Not Detect) Ur Barbiturates Screen (Not Detect) Ur Phencyclidine Scrn (Not Detect) Ur Amphetamines Screen (Not Detect) U Benzodiazepines Scrn (Not Detect) Urine Cocaine Screen (Not Detect) U Marijuana (THC) Screen (Not Detect) Ethyl Alcohol mg/dL Discharge Plan Discharge Clinical Impression: Acute anxiety Prescriptions: No Action No Known Home Meds
[2022-09-09] MEDS: LORazepam 1 MG TABLET PO (22:34)
[2022-09-09 23:03] LABS: MANUAL DIFF FLAG NO
[2022-09-09 23:07] LABS: Basophils Absolute Auto 0.1 X10*3/uL (0.0-0.2); Basophils Percent Auto 0.8 % (0-2); Eosinophils Absolute Auto 0.1 X10*3/uL (0.0-0.4); Eosinophils Percent Auto 1.9 % (0-4); Hematocrit 39.6 % (42.0-52.0); Hemoglobin 13.9 g/dl (14.0-18.0); Imm Gran Abs Auto 0.02 X10*3/uL (0.00-0.03); Imm Gran Pct Auto 0.3 % (0.0-0.4); Lymphocytes Absolute Auto 2.3 X10*3/uL (1.2-4.9); Lymphocytes Percent Auto 31.1 % (20-40); Mean Corpuscular HGB Conc 35.1 g/dl (31.0-36.0); Mean Corpuscular Volume 85.3 fL (80.0-98.0); Monocytes Absolute Auto 0.8 X10*3/uL (0.1-1.2); Monocytes Percent Auto 10.5 % (2-11); Neutrophils Percent Auto 55.4 % (45-73); Platelet Count 231 X10*3/uL (160-400); Red Blood Count 4.64 X10*6/uL (4.60-5.80); White Blood Count 7.3 X10*3/uL (4.8-10.8)
[2022-09-09 23:10] LABS: Appearance Urine Clear; Color Urine Yellow; Glucose Urine UA Negative (Negative); Leukocyte Esterase Urine Negative (Negative); Nitrite Urine Negative (Negative); PH 5.5 (5.0-9.0); Specific Gravity - Urine >= 1.030 (1.005-1.025); Urine Blood Negative (Negative); Urine Ketones Negative (Negative); Urine Protein Negative (Neg-Trace)
[2022-09-09 23:27] LABS: Amphetamine Screen Urine Not Detected (Not Detect); Barbiturates, Urine Not Detected (Not Detect); Benzodiazepines Screen Urine Not Detected (Not Detect); Cannabinoid Screen Urine POSITIVE (Not Detect); Cocaine Screen Urine POSITIVE (Not Detect); Fentanyl, urine POSITIVE (Not Detect); Opiate Screen Urine Not Detected (Not Detect); Phencyclidine Screen Urine POSITIVE (Not Detect)
[2022-09-09 23:35] LABS: Alanine Aminotransferase 69 U/L (0-40); Albumin Level 4.2 g/dL (3.5-5.0); Alkaline Phosphatase 99 U/L (39-117); Anion Gap 13 (12-20); Aspartate Amino Transferase 61 U/L (5-37); Bilirubin Total 0.7 mg/dL (0.0-1.0); Blood Urea Nitrogen 21 mg/dL (9-16); Calcium 9.6 mg/dL (8.4-10.2); Carbon Dioxide 27 mmol/L (22-29); Chloride 101 mmol/L (96-108); Estimated Glomerular Filt Rate > 60; Ethanol < 10 mg/dL; Glucose Random 97 mg/dL (60-115); Potassium 3.6 mmol/L (3.3-5.1); Sodium 137 mmol/L (135-145); Total Protein 7.9 g/dL (6.5-8.0)
--- NOTE | 2022-09-10 05:57 | PC.NURSE ---
Patient slept through the night, no distress observed/reported, behavior non concerning, med rec attempted/patient is currently not on any home medication, care consult ordered/pending evaluation, VSS, labs completed/resulted, will continue to monitor.
[2022-09-10 06:06] VITALS: BP 119/79; PULSE 83; RESP 18; TEMP 36.6; O2SAT 95
[2022-09-10 08:05] VITALS: BP 141/87; PULSE 93; RESP 16; TEMP 37; O2SAT 98
[2022-09-10] MEDS: LORazepam 1 MG TABLET 2 MG PO (08:24)
--- NOTE | 2022-09-10 09:53 | MHC.CARE ---
CARE team met with pt secondary to consult for anxiety. Pt presented in [facility] is known to [facility] and has a chronic history for polysubstance use. [facility] reports [facility] and [facility] himself out two days ago and relapsed on fentanyl, PCP, cocaine and cannabis. He reports he called the [facility] crisis line and [facility] to be picked [facility], however they transported him to [facility]. He reports [facility] [address] in [place], [place] as he needs to get his benefits reinstated as he has not had services and has been homeless for the past year. CARE team consulted with ED provider Dr. Burkett regarding consult and pt request get a ride to [facility] in [place], ED provider in agreement and pt to be [facility] with [facility] to [facility].
== END 2022-09-10 09:43 | disposition home or self-care (01) ==
PROVIDERS: Emergency Provider Emergency Medicine Emergency Medical Services; PCP Nurse Practitioner Family
DX: F41.1 Generalized anxiety disorder (principal); F43.0 Acute stress reaction; Z79.899 Other long term (current) drug therapy
CPT/HCPCS: 36415; 80053; 80307; 81003; 85025; 99283

== ENCOUNTER 2023-08-04 09:19 | Emergency (ER) | payer OTHER, SELFPAY ==
[2023-08-04 09:21] VITALS: BP 150/100; PULSE 70; RESP 16; TEMP 37; O2SAT 95; BMI 32.5
--- NOTE | 2023-08-04 11:04 | ED.EXTPRO ---
HPI - Extremity Problem General Chief complaint: Extremity Problem Stated complaint: blisters on feet Time Seen by Provider: 08/04/23 10:21 Source: patient Mode of arrival: ambulatory Limitations: no limitations History of Present Illness ED Provider: Lizette Reeves HPI Narrative: 43-year-old male with a history of substance use who is currently homeless presents the ER with complaints of blisters to both of his feet. Patient reports that his sneakers were tight and he walks a lot causing his blisters to occur. He denies any fevers, chills, redness, swelling, numbness, tingling. He has not interested in talking to a assistant men's lacrosse coach or any detox resources at this time. Related Data Home Medications ?Medication ?Instructions ?Recorded ?Confirmed No Known Home Meds 09/10/22 09/10/22 Allergies Allergy/AdvReac Type Severity Reaction Status Date / Time sildenafil [From VIAGRA] Allergy Mild UNKNOWN Verified 08/04/23 09:31 Penicillins [PCN] Allergy Unknown Verified 08/04/23 09:31 Review of Systems Review of Systems: Yes all other systems are reviewed and are negative Constitutional: Constitutional: Reports no additional constitutional complaints, Denies body ache(s), Denies chills, Denies fever(s), Denies headache(s) and Denies weakness Eyes: Eyes: Reports no additional eye complaints and Denies change in vision ENT: Reports system reviewed and no additional complaints, except as documented, Denies dizziness, Denies headache(s), Denies nasal congestion, Denies nasal discharge and Denies neck pain Cardiovascular: Cardiovascular: Reports no additional cardiovascular complaints, Denies chest pain, Denies leg edema and Denies dyspnea Respiratory: Respiratory: Reports no additional respiratory complaints, Denies cough and Denies dyspnea Gastrointestinal: Gastrointestinal: Reports no additional gastrointestinal complaints, Denies abdominal pain, Denies diarrhea, Denies nausea and Denies vomiting Genitourinary: Genitourinary: Denies urinary incontinence Musculoskeletal: Musculoskeletal: Reports no additional musculoskeletal complaints, Denies back pain, Denies arthralgias, Denies joint swelling, Denies neck pain, Denies numbness and Denies tingling Integumentary/Breasts: Skin/Breast: Reports system reviewed and no additional complaints, except as docu, Reports furuncle and Denies rash Neurologic: Reports system reviewed and no additional complaints, except as documented, Denies Abnormal speech present, Denies dizziness, Denies headache(s), Denies numbness, Denies tingling and Denies weakness PMFSH Past Medical History Attestation statement: The following information was validated with the patient. Source: old records reviewed and nursing notes reviewed Social History Social History Alcohol intake: former Substance Use Type: Crack/Cocaine and Marijuana Advance Directives: No Advance Directives Information Provided: No Physical Exam Vital Signs: Vital Signs: Last Vital Signs Temp 98.2 F 08/04/23 11:21 Pulse 71 08/04/23 11:21 Resp 16 08/04/23 11:21 BP 156/98 H 08/04/23 11:21 Pulse Ox 95 08/04/23 09:21 O2 Del Method Room Air 08/04/23 09:21 O2 Flow Rate 95 08/04/23 11:21 BMI result Body Mass Index 32.5 Const: General: cooperative, healthy appearing, comfortable and no acute distress Orientation/consciousness: patient oriented x3 Limitations: no limitations HEENT: Head: Yes normal to inspection Ears: hearing grossly normal bilaterally General nose exam: Normal external nose present Face and sinus: Yes normal facial exam Mouth: Normal oral and palatal mucosa present Throat: Yes posterior oropharynx normal Eyes: General: appearance normal, both eyes and all related structures Pupils: Equal, round and reactive pupils present Neck: Neck: Yes normal visual inspection Chest: Chest palpation & inspection: normal inspection of the chest Resp: Effort & Inspection: normal respiratory effort Auscultation: clear to auscultation bilaterally Cardio: Rate: regular rate Rhythm: regular rhythm Peripheral pulses: Peripheral pulses 2+ throughout GI: Inspection: Yes normal to inspection Palpation (GI): Soft to palpation and nontender Auscultation: normal bowel sounds Back/Spine/Pelvis: Thoracic/Lumbar Spine: thoracic and lumbar spine normal to inspection Skin: General skin exam: no rashes or lesions noted Neuro: General: patient oriented x3, no focal motor deficits and normal sensation to monofilament Cranial nerves: Yes Equal, round and reactive pupils present Cognition (Neuro): normal cognition Speech: No Abnormal speech present Gait exam (Neuro): Normal gait present Motor exam (neuro): 5/5 motor strength present throughout Extrem: Other: Over the soles of the feet there are 2 blisters noted on the base of the 1st toes. There are also blisters noted over the volar aspects of the 4th and 5th toes on both feet. There are is no surrounding erythema, swelling, drainage. Medications Administered Discontinued Medications Generic Name Dose Route Start Last Admin Trade Name Luis PRN Reason Stop Dose Admin Bacitracin 1 appl 08/04/23 11:07 08/04/23 11:20 Bacitracin Oint 0.9 Gm Packet TOPICAL 08/04/23 11:08 1 appl ONCE ONE Administration Protocol Medical Decision Making Medical Decision Making MDM Narrative: 43-year-old male with a history of substance use who is currently homeless presents the ER with complaints of blisters to both of his feet. Patient reports that his sneakers were tight and he walks a lot causing his blisters to occur. He denies any fevers, chills, redness, swelling, numbness, tingling. He has not interested in talking to a assistant men's lacrosse coach or any detox resources at this time. Over the soles of the feet there are 2 blisters noted on the base of the 1st toes. There are also blisters noted over the volar aspects of the 4th and 5th toes on both feet. There are is no surrounding erythema, swelling, drainage. Wound care provided by nursing. no signs of infection. recommend patient keep his feet dry and perform dressing changes as needed. Reviewed worrisome signs and symptoms of when to return to the emergency room. Comfortable plan for discharge home. Differential Diagnosis Differential Diagnoses: The differential diagnosis associated with the presentation includes Blisters no signs of infection Admission/Observation Consideration of admission/observation: Escalation of care including admission/observation considered patient with local blisters with no signs of infection. No need for antibiotics and/or admission Prescription Management I considered prescription management with: Antibiotic Discharge Plan Discharge Clinical Impression: Blisters of multiple sites Patient Disposition: Home, Self-Care Instructions: Blister (ED) Additional Instructions: warm soaks may be helpful for feet keep them dry you may use dressings to help with padding for comfort Prescriptions: No Action No Known Home Meds Referrals: Physician,Daniel J [Primary Care Provider] - 1 week Interventions: ED Discharge Assessment Last Done: 08/04/23 11:21 Discharge Date/Time: 08/04/23 11:22 Print Language: Welsh
[2023-08-04] MEDS: Bacitracin Oint 0.9 GM PACKET 1 APPL TOPICAL (11:20)
--- NOTE | 2023-08-04 11:20 | PC.NURSE ---
pts blisters medicated and bandaids applied to smaller areas and non stick/ann applied to larger areas
[2023-08-04 11:21] VITALS: BP 156/98; PULSE 71; RESP 16; TEMP 36.8
== END 2023-08-04 11:22 | disposition home or self-care (01) ==
PROVIDERS: Emergency Provider Emergency Medicine
DX: S90.422A Blister (nonthermal), left great toe, initial encounter (principal); S90.421A Blister (nonthermal), right great toe, initial encounter; S90.425A Blister (nonthermal), left lesser toe(s), initial encounter; S90.424A Blister (nonthermal), right lesser toe(s), initial encounter; S90.822A Blister (nonthermal), left foot, initial encounter; S90.821A Blister (nonthermal), right foot, initial encounter; X58.XXXA Exposure to other specified factors, initial encounter; Y93.01 Activity, walking, marching and hiking; Y92.414 Local residential or business street as the place of occurrence of the external cause; Y99.9 Unspecified external cause status; Z59.00 Homelessness unspecified
CPT/HCPCS: 99282; 99283

== ENCOUNTER 2023-08-20 18:06 | Inpatient (IN) | payer OTHER, MEDICARE, SELFPAY ==
--- NOTE | 2023-08-20 18:57 | ED_ITS ---
HPI - Psych General Chief Complaint: Psychiatric Symptoms Stated Complaint: SI SECTION 12 Time Seen by Provider: 08/20/23 18:30 Mode of arrival: ambulatory Limitations: no limitations History of Present Illness ED Provider: bienvenido LEY Narrative: Patient's history of PTSD depression substance abuse in the past comes here for been more depressed felt suicidal section 12 by therapist Related Data Home Medications ?Medication ?Instructions ?Recorded ?Confirmed No Known Home Meds 09/10/22 09/10/22 Allergies Allergy/AdvReac Type Severity Reaction Status Date / Time sildenafil [From VIAGRA] Allergy Mild UNKNOWN Verified 08/20/23 19:22 Penicillins [PCN] Allergy Unknown Verified 08/20/23 19:22 Review of Systems 2 Review of Systems: Yes all other systems are reviewed and are negative [facility] Social History Social History Alcohol intake: former Substance Use Type: Crack/Cocaine and Marijuana Advance Directives: No Advance Directives Information Provided: No Do you have a plan to hurt others: No Plan Physical Exam 2 Vital Signs: Vital Signs: Last Vital Signs Temp 98 F 08/20/23 19:16 Pulse 95 08/20/23 19:16 Resp 18 08/20/23 19:16 BP 140/88 H 08/20/23 19:16 Pulse Ox 98 08/20/23 19:16 O2 Del Method Room Air 08/20/23 19:16 BMI result Body Mass Index 30.4 Appearance: Alert. Oriented X3. No acute distress. Eyes: PERRLA, No Nystagmus ENT: Pharynx normal. Oral Mucosa moist Neck: Normal inspection. Neck supple. CVS: Normal heart rate and rhythm. Pulses normal. Respiratory: No respiratory distress. Equal air entry bilateral, no wheezing/rales/rhonchi Abdomen: Soft and nontender. Bowel sounds are present, no mass palpable, no CVA tenderness Skin: Skin warm and dry. Normal skin color. Normal skin turgor. Extremities: No lower extremity edema. No calf tenderness psych: Feels stressed out, anxious denies any SI at this time Neuro: Oriented X 3. No motor deficit. No sensory deficit.No cerebellar signs , cranial nerves II-XII intact Medications Administered Discontinued Medications Generic Name Dose Route Start Last Admin Trade Name Freq PRN Reason Stop Dose Admin Lorazepam 2 mg 08/20/23 18:57 08/20/23 19:05 Lorazepam 2 Mg/Ml Vial IM 08/20/23 18:58 2 mg ONCE ONE Administration Medical Decision Making Medical Decision Making MDM Narrative: Patient with history of PTSD, depression with suicidal feeling with history of PTSD and substance abuse will be seen by care team disposition according to their discussion likely admission Case discussed with care team will have dual diagnosis inpatient admission Lab Data [facility] Lab Attestation statement: I reviewed the patient's lab results. 08/20/23 20:53 08/20/23 20:53 Labs: Lab Results 08/20/23 08/20/23 Range/Units 20:30 20:53 WBC 8.4 (4.8-10.8) X10*3/uL RBC 4.70 (4.60-5.80) X10*6/uL Hgb 15.0 (14.0-18.0) g/dl Hct 41.7 L (42.0-52.0) % MCV 88.7 (80.0-98.0) fL MCH 31.9 (27.0-33.0) pg MCHC 36.0 (31.0-36.0) g/dl RDW 12.8 (11.0-16.0) % Plt Count 274 (160-400) X10*3/uL MPV 9.0 L (9.4-12.4) fL Immature Gran % (Auto) 0.4 (0.0-0.4) % Neut % (Auto) 63.8 (45-73) % Lymph % (Auto) 25.3 (20-40) % [place] % (Auto) 8.6 (2-11) % Eos % (Auto) 1.3 (0-4) % Baso % (Auto) 0.6 (0-2) % Lymph # (Auto) 2.1 (1.2-4.9) X10*3/uL [place] # (Auto) 0.7 (0.1-1.2) X10*3/uL Eos # (Auto) 0.1 (0.0-0.4) X10*3/uL Baso # (Auto) 0.1 (0.0-0.2) X10*3/uL Abs Immat Gran (auto) 0.03 (0.00-0.03) X10*3/uL Absolute Neuts (auto) 5.3 (2.0-8.3) x10*3/uL Absolute Nucleated RBC 0.000 (0.0-0.012) X10*3/uL Nucleated RBC % (auto) 0.0 (0.0-0.2) /100WBC Sodium 139 (135-145) mmol/L Potassium 3.5 (3.3-5.1) mmol/L Chloride 103 (96-108) mmol/L Carbon Dioxide 24 (22-29) mmol/L Anion Gap 16 (12-20) BUN 13 (9-16) mg/dL Creatinine 0.87 (0.5-1.4) mg/dL Estim Creat Clear Calc 118.5 Estimated GFR > 60 Random Glucose 99 (60-115) mg/dL Calcium 9.5 (8.4-10.2) mg/dL Total Bilirubin 0.8 (0.0-1.0) mg/dL AST 69 H (5-37) U/L ALT 91 H (0-40) U/L Alkaline Phosphatase 81 (39-117) U/L Total Protein 8.2 H (6.5-8.0) g/dL Albumin 4.3 (3.5-5.0) g/dL Urine Color Dark Yellow Urine Appearance Clear Urine pH 5.5 (5.0-9.0) Ur Specific [place] >= 1.030 H (1.005-1.025) Urine Protein Trace (Neg-Trace) mg/dL Urine Glucose (UA) Negative (Negative) mg/dL Urine Ketones Trace (Negative) mg/dL Urine Blood Negative (Negative) Urine Nitrite Negative (Negative) Ur Leukocyte Esterase Negative (Negative) Urine Opiates Screen Not Detected (Not Detect) Ur Buprenorphine Scrn Not Detected (Not Detect) ng/mL Ur Oxycodone Screen Not Detected (Not Detect) ng/mL Urine Methadone Screen Not Detected (Not Detect) ng/mL Urine Fentanyl Screen POSITIVE H (Not Detect) Ur Barbiturates Screen Not Detected (Not Detect) Ur Phencyclidine Scrn Not Detected (Not Detect) Ur Amphetamines Screen POSITIVE H (Not Detect) U Benzodiazepines Scrn Not Detected (Not Detect) Urine Cocaine Screen POSITIVE H (Not Detect) U Marijuana (THC) Screen POSITIVE H (Not Detect) Ethyl Alcohol < 10 mg/dL COVID-19 (MP) Negative (Negative) COVID-19 Clin Com See Note Discharge Plan Discharge Clinical Impression: Polysubstance (including opioids) dependence with physiol dependence, Depression with suicidal ideation, Chronic post-traumatic stress disorder Patient Disposition: Still a Patient Prescriptions: No Action No Known Home Meds Interventions: Momence-Suicide Risk Severity Scale Last Done: 08/20/23 22:16 Print Language: Upper Sorbian
[2023-08-20] MEDS: LORazepam 2 MG/ML VIAL IM (19:05)
[2023-08-20 19:16] VITALS: BP 140/88; PULSE 95; RESP 18; TEMP 36.6; O2SAT 98; BMI 30.4
--- NOTE | 2023-08-20 19:41 | PC.NURSE ---
patient on arrival to unit was newly arrived in his room, client expressed, after receiving 2mg ativsn IM per his request patient spoke to t/w 1:1 for 5 minutes wanting to express circumstances of his arrivsal, statin i dont want to hurt my mom anymore reporting recent relapse and prior failures to reach and attain matintain sobriety.t/w spoke to client for several minutes and thereafter client was approacjed by peer to get labs and urine sample done. due to moderately rude bx displayed toward peer soon thereafter talking back so to speak, it is apparent this client does not appear genuine in his pursuit of sobriety, it does not appear he has any interest other than psychotropics.
[2023-08-20 20:41] LABS: Appearance Urine Clear; Color Urine Dark Yellow; Glucose Urine UA Negative (Negative); Leukocyte Esterase Urine Negative (Negative); Nitrite Urine Negative (Negative); PH 5.5 (5.0-9.0); Specific Gravity - Urine >= 1.030 (1.005-1.025); Urine Blood Negative (Negative); Urine Ketones Trace mg/dL (Negative); Urine Protein Trace mg/dL (Neg-Trace)
[2023-08-20 20:54] LABS: Amphetamine Screen Urine POSITIVE (Not Detect); Barbiturates, Urine Not Detected (Not Detect); Benzodiazepines Screen Urine Not Detected (Not Detect); Buprenorphine Scr Not Detected (Not Detect); Cannabinoid Screen Urine POSITIVE (Not Detect); Cocaine Screen Urine POSITIVE (Not Detect); Fentanyl, urine POSITIVE (Not Detect); Methadone Screen, Urine Not Detected (Not Detect); Opiate Screen Urine Not Detected (Not Detect); Oxycodone Screen Urine Not Detected (Not Detect); Phencyclidine Screen Urine Not Detected (Not Detect)
[2023-08-20 20:57] LABS: COVID-19 Test Negative (Negative); IDNOW Serial# 08D9AD1C
[2023-08-20 20:58] LABS: MANUAL DIFF FLAG NO
[2023-08-20 20:59] LABS: Basophils Absolute Auto 0.1 X10*3/uL (0.0-0.2); Basophils Percent Auto 0.6 % (0-2); Eosinophils Absolute Auto 0.1 X10*3/uL (0.0-0.4); Eosinophils Percent Auto 1.3 % (0-4); Hematocrit 41.7 % (42.0-52.0); Imm Gran Abs Auto 0.03 X10*3/uL (0.00-0.03); Imm Gran Pct Auto 0.4 % (0.0-0.4); Lymphocytes Absolute Auto 2.1 X10*3/uL (1.2-4.9); Lymphocytes Percent Auto 25.3 % (20-40); Mean Corpuscular Hemoglobin 31.9 pg (27.0-33.0); Mean Corpuscular Volume 88.7 fL (80.0-98.0); Monocytes Absolute Auto 0.7 X10*3/uL (0.1-1.2); Monocytes Percent Auto 8.6 % (2-11); Neutrophils Absolute Auto 5.3 x10*3/uL (2.0-8.3); Neutrophils Percent Auto 63.8 % (45-73); Platelet Count 274 X10*3/uL (160-400); Red Cell Distribution Width 12.8 % (11.0-16.0); White Blood Count 8.4 X10*3/uL (4.8-10.8)
[2023-08-20 21:20] LABS: Alanine Aminotransferase 91 U/L (0-40); Albumin Level 4.3 g/dL (3.5-5.0); Alkaline Phosphatase 81 U/L (39-117); Anion Gap 16 (12-20); Aspartate Amino Transferase 69 U/L (5-37); Bilirubin Total 0.8 mg/dL (0.0-1.0); Blood Urea Nitrogen 13 mg/dL (9-16); Calcium 9.5 mg/dL (8.4-10.2); Carbon Dioxide 24 mmol/L (22-29); Chloride 103 mmol/L (96-108); Creatinine Clr Calc Pharmacy 118.5; Estimated Glomerular Filt Rate > 60; Ethanol < 10 mg/dL; Glucose Random 99 mg/dL (60-115); Potassium 3.5 mmol/L (3.3-5.1); Sodium 139 mmol/L (135-145); Total Protein 8.2 g/dL (6.5-8.0)
--- NOTE | 2023-08-21 | ECG_ITS ---
Test Reason : PROLONGED QT Blood Pressure : / mmHG Vent. Rate : 091 BPM Atrial Rate : 091 BPM P-R Int : 142 ms QRS Dur : 090 ms QT Int : 348 ms P-R-T Axes : 033 014 -14 degrees QTc Int : 428 ms Normal sinus rhythm Normal ECG When compared with ECG of 25-JUL-2018 12:17, Premature ventricular complexes are no longer Present Nonspecific T wave abnormality now evident in Lateral leads Referred By: Generic ED Physician Electronically Signed By:BULMARO GAFFNEY MD
[2023-08-21 06:21] VITALS: BP 138/90; PULSE 90; RESP 18; TEMP 36.4; O2SAT 99
--- NOTE | 2023-08-21 06:32 | PC.NURSE ---
client wakes, antagonistic trying to irritate staff, not following directions wanting to bulldoze his way into shower room where a young girl was already using the rest room. t/w requested ativan 2mg po times one for client to assist in his dysregulated mood.
[2023-08-21] MEDS: LORazepam 2 MG/ML VIAL IM (06:53)
[2023-08-21] MEDS: Haloperidol Lactate 5 MG/ML VIAL IM (06:53)
[2023-08-21 20:12] VITALS: BP 122/84; PULSE 88; RESP 17; TEMP 37.1; O2SAT 97
--- NOTE | 2023-08-22 00:40 | PC.ADMIT ---
PT IS A 43 YEAR OLD, CHINESE SPEAKING, MALE ADMITTED TO [facility] FROM [facility]. PT WAS BROUGHT IN ON A SECTION 12A AFTER TELLING HIS THERAPIST HE WANTED TO KILL HIMSELF. PT SIGNED A CONDITIONAL VOLUNTARY BEFORE ADMISSION TO THE UNIT. PT REFUSED TO SIGN ANY LEGAL FORMS WHILE ON UNIT. MOST OF HIS ADMISSION EXCEPT THE SAFETY TOOL WERE DONE FROM CRISIS ASSESSMENT. PT REPORTS NOT WANTING TO BE INPATIENT AND THOUGHT IT WOULD BE DIFFERENT. HE WAS ANGRY THAT HE HAS A ROOMMATE. PT STATED IF I JUST FLIP THE FUCK OUT YOU GUYS WILL HAVE TO LET ME GO . PT WAS REDIRECTABLE VERBALLY. HE DID NOT WANT TO ANSWER ANY QUESTIONS REGARDING PSYCH SYMPTOMS. PT STATED I SMOKED SOME CRACK AND FLIPPED OUT, HAPPENS ALL THE TIME. NO BIG DEAL . PT REPORTS HAVING PTSD FROM THE AND WILL PUNCH SOMEONE IF BOTHERED . PT REPORTS BEING TRIGGERED BY LOUD NOISES, YELLING, SLAMMING DOORS, BEING TOUCHED, AND WATCHING PEOPLE ACT OUT. PTS GAZE IS AVOIDANT. HIS TOX SCREEN WAS POSITIVE FOR COCAINE, MARIJUANA, FENTANYL, AND AMPHETAMINES. HE DENIES ALCOHOL USE AND DOES NOT APPEAR TO BE WITHDRAWING AT THIS TIME. HE IS EATING AND SLEEPING WELL. LABS WNL. EKG NORMAL SINUS RHYTHM. NO OPEN AREAS/WOUNDS. INDEPENDENT AMBULATION.
[2023-08-22] MEDS: valACYclovir HCL 500 MG TABLET PO (08:26)
[2023-08-22] MEDS: LORazepam 1 MG TABLET PO (09:35)
--- NOTE | 2023-08-22 10:02 | P.HPPS_ITS ---
HPI Date of Service: 08/22/23 Chief Complaint: SI SECTION 12 Sources of Information: patient interviewed, chart reviewed and crisis/core team assessment reviewed HPI Narrative: Patient is a 43-year-old male with history of PTSD, polysubstance abuse, antisocial personality disorder who presents for making suicidal comment. Patient is well known to this senior medical writer from numerous past admissions at the [facility]. Patient is upset that he is been admitted and refuses to sign in, saying he was never suicidal. Patient says he has been sober for the past year and relapsed this past week and was doing some Coke with girls. Patient said that he wanted to get with sobriety and so called the [facility] for help who said they would send an ambulance; he denied he said anything about suicide when he called. Patient says while waiting for the ambulance to come patient said some police showed up and since patient had been doing cocaine or had some cocaine on him, and generally feels triggered by the police, he was agitated that he was being brought to the hospital. Patient was restrained in the emergency room, sedated from restraint medications. Now on the unit, he says he does not need inpatient admission, he has not suicidal at all and never was and wants discharge. As senior medical writer approached patient he was very friendly, calm, logical and reasonable saying how much he appreciates this senior medical writer; earlier however with nursing staff he made threats about getting hostile or hitting people if he has not discharged which he denied to this senior medical writer. Per collateral, Patient's contact at the [facility] reports that patient called and made a suicidal comment about walking into traffic zone ambulance was sent; patient got tired of waiting for the ambulance and called police/EMS and said he was suicidal who then picked him up and brought him to the hospital. Past Psychiatric History: Long history of severe polysubstance abuse Minimal medication or treatment adherence Numerous inpatient hospitalizations, treatment programs Medical Evaluation Reviewed: Yes [facility] Medical History (Updated 08/22/23 @ 17:42 by Magdy Ramirez MD) Antisocial personality disorder Adjustment disorder with mixed disturbance of emotions and conduct in remission Family History: Unknown Social History: with services at the [facility] Intermittent homelessness, often stays with friends Has supportive aunt and uncle who support and tried to help him navigate sobriety Substance History: Long history of polysubstance abuse with primary focus on cocaine; does not abuse alcohol Trauma History: Trauma from over the years Diagnostics Vital Signs (24Hr): Vital Signs - 24 hr 08/21/23 20:12 Temperature 98.7 F Pulse Rate 88 Respiratory Rate 17 Blood Pressure 122/84 Pulse Oximetry 97 Oxygen Delivery Method Room Air BMI result Body Mass Index 30.4 Labs 08/20/23 20:53 08/20/23 20:53 Labs: Laboratory Results - last 48 hr 08/20/23 08/20/23 20:30 20:53 WBC 8.4 RBC 4.70 Hgb 15.0 Hct 41.7 L MCV 88.7 MCH 31.9 MCHC 36.0 RDW 12.8 Plt Count 274 MPV 9.0 L Immature Gran % (Auto) 0.4 Neut % (Auto) 63.8 Lymph % (Auto) 25.3 [place] % (Auto) 8.6 Eos % (Auto) 1.3 Baso % (Auto) 0.6 Lymph # (Auto) 2.1 [place] # (Auto) 0.7 Eos # (Auto) 0.1 Baso # (Auto) 0.1 Abs Immat Gran (auto) 0.03 Absolute Neuts (auto) 5.3 Absolute Nucleated RBC 0.000 Nucleated RBC % (auto) 0.0 Sodium 139 Potassium 3.5 Chloride 103 Carbon Dioxide 24 Anion Gap 16 BUN 13 Creatinine 0.87 Estim Creat Clear Calc 118.5 Estimated GFR > 60 Random Glucose 99 Calcium 9.5 Total Bilirubin 0.8 AST 69 H ALT 91 H Alkaline Phosphatase 81 Total Protein 8.2 H Albumin 4.3 Urine Color Dark Yellow Urine Appearance Clear Urine pH 5.5 Ur Specific [place] >= 1.030 H Urine Protein Trace Urine Glucose (UA) Negative Urine Ketones Trace Urine Blood Negative Urine Nitrite Negative Ur Leukocyte Esterase Negative Urine Opiates Screen Not Detected Ur Buprenorphine Scrn Not Detected Ur Oxycodone Screen Not Detected Urine Methadone Screen Not Detected Urine Fentanyl Screen POSITIVE H Ur Barbiturates Screen Not Detected Ur Phencyclidine Scrn Not Detected Ur Amphetamines Screen POSITIVE H U Benzodiazepines Scrn Not Detected Urine Cocaine Screen POSITIVE H U Marijuana (THC) Screen POSITIVE H Ethyl Alcohol < 10 COVID-19 (MP) Negative COVID-19 Clin Com See Note Meds/Allergies Meds Home Medications ?Medication ?Instructions ?Recorded ?Confirmed ?Type dextroamphetamine-amphetamine ER 1 cap PO QAM 08/21/23 08/21/23 History 20 mg 24hr capsule,extend release trazodone 100 mg tablet 100 mg PO BEDTIME 08/21/23 08/21/23 History valacyclovir 500 mg tablet 500 mg PO DAILY 08/21/23 08/21/23 History Allergies Allergies Allergy/AdvReac Type Severity Reaction Status Date / Time sildenafil [From VIAGRA] Allergy Mild UNKNOWN Verified 08/20/23 19:22 Penicillins [PCN] Allergy Unknown Verified 08/20/23 19:22 Mental Status Exam Mental Status Exam Narrative: Pt is alert and oriented; with senior medical writer behavior is cooperative, friendly and calm; patient is not in distress; dressed in casual attire with unkempt hair but adequate hygiene; mood is described as good and affect congruent; eye contact appropriate; Speech is normal rate, volume and prosody and not pressured; no psychomotor agitation/retardation present; thought process is organized and goal directed; Thought content is on tx; otherwise pertinent to relevant topics and without any delusional content, paranoid ideations or grandiosity; denies any SI/HI. There is no evidence of perceptual disturbance. Patients insight and judgment intact and adequate. Assessment & Plan Assessment & Plan (1) Adjustment disorder with mixed disturbance of emotions and conduct in remission: Status: Acute Code(s): F43.25 - Adjustment disorder with mixed disturbance of emotions and conduct (2) Antisocial personality disorder: Status: Acute Code(s): F60.2 - Antisocial personality disorder (3) Chronic post-traumatic stress disorder: Status: Acute Code(s): F43.12 - Post-traumatic stress disorder, chronic (4) Polysubstance (including opioids) dependence with physiol dependence: Status: Acute Code(s): F19.20 - Other psychoactive substance dependence, uncomplicated (5) ADHD: Status: Acute Code(s): F90.9 - Attention-deficit hyperactivity disorder, unspecified type Plan Patient is a 43-year-old male with history of PTSD, polysubstance abuse, antisocial personality disorder who presents for making suicidal comment. Patient is well known to this senior medical writer from numerous past admissions at the [facility]. Patient is upset that he is been admitted and refuses to sign in, saying he was never suicidal. Patient says he has been sober for the past year and relapsed this past week and was doing some Coke with girls. Patient said that he wanted [facility]; he denied he said anything about suicide when he called; patient said he was waiting for them to arrive when some police showed up and since patient had been doing cocaine or had some cocaine on him, and generally feels triggered by the police, was agitated that he was being brought to the hospital. Patient was restrained in the emergency room, sedated from restraint medications. Now on the unit, he says he does not need inpatient admission, he has not suicidal at all and never was and wants discharge. As senior medical writer approached patient he was very friendly, calm, logical and reasonable saying how much he appreciates this senior medical writer; earlier however with nursing staff he made threats about getting hostile or hitting people if he has not discharged which he denied to this senior medical writer. Per collateral, Patient's contact at the [facility] reports that patient called and made a suicidal comment about walking into traffic zone ambulance was sent; patient got tired of waiting for the ambulance and called police/EMS and said he was suicidal who then picked him up and brought him to the hospital. Patient's uncle present on the unit who reported to senior medical writer that patient has been sober for the past year because he was incarcerated, getting out of shelter about a month ago during which time he spent thousands of dollars on drug use. Impression/clinical reasoning: Patient is at baseline. He has a long history of polysubstance abuse, antisocial behaviors and resistance to treatment. Patient has no history of estela or psychosis. He does not want treatment now and wants immediate discharge; should patient change his mind, [facility] Patient also has a place to stay. He denies any suicidality at all and denies that he made a suicidal comment to anyone at the [facility] or anywhere else. He says to senior medical writer paraphrased, you know me, I am not suicidal... I don't want to hurt myself... Patient is well known to this senior medical writer and to this senior medical writer's knowledge he has never actually engaged in self-harm; he does however have a long history of making threats and adapting his story to achieve his own personal agendas. Though he denies it, It seems reasonably likely that patient did make a suicidal comment when [facility] per their report, which was in the context of coming down from a cocaine high and wanting some kind of help; however senior medical writer agrees that whatever emotional dysregulation patient was feeling at that time, it has fully resolved and that patient is not in imminent risk for harm to self or others. Patient is able to be calm and in good behavioral and impulse control at will. His thinking is logical and linear and he is organized in speech and behavior. Patient does not want treatment and is threatening to be disruptive on the unit if he is not discharge. He does not require inpatient admission for safety and will not benefit from being forced to stay on the unit against his will; rather this would be counter therapeutic for him and the rest of the milieu. Patient's request for discharge honored. Patient educated on: diagnosis, substance abuse and therapeutic strategies Informed Consent: understands Reason for continued inpatient stay Substantial Risk for: stable for discharge Statement Statement: I have reviewed the history and physical and performed a pertinent examination on my patient. No changes have occurred unless specified. If the History and Physical was not performed prior to admission, the Hospitalist's service will be consulted for completing the admission physical. Time Spent With Patient Time: Total time managing care of this patient today ____ minutes.
--- NOTE | 2023-08-22 10:22 | P.DS_ITS ---
DS: Providers Provider Date of Service: 08/22/23 Date of admission: 08/21/23 17:30 Date of discharge: 08/22/23 Primary care physician: Unknown Physician Attending physician on admission: Magdy Ramirez Attending physician on discharge: Magdy Ramirez DS: Medications Discharge Medications Home Medications: Home Medications ?Medication ?Instructions ?Recorded ?Confirmed dextroamphetamine-amphetamine ER 1 cap PO QAM 08/21/23 08/21/23 20 mg 24hr capsule,extend release trazodone 100 mg tablet 100 mg PO BEDTIME 08/21/23 08/21/23 valacyclovir 500 mg tablet 500 mg PO DAILY 08/21/23 08/21/23 Mental Status Exam Mental Status Exam Narrative: Pt is alert and oriented; with pattern chart writer behavior is cooperative, friendly and calm; with other staff, irritable and threatening; patient is not in distress; dressed in casual attire with unkempt hair but adequate hygiene; mood is described as good and affect congruent; eye contact appropriate; Speech is normal rate, volume and prosody and not pressured; no psychomotor agitation/retardation present; thought process is organized and goal directed; Thought content is on tx; otherwise pertinent to relevant topics and without any delusional content, paranoid ideations or grandiosity; denies any SI/HI. There is no evidence of perceptual disturbance. Patients insight and judgment intact and adequate. Data Data Completed and Pending Completed studies during hospitalization [Text1]: 08/20/23 08/20/23 20:30 20:53 WBC 8.4 RBC 4.70 Hgb 15.0 Hct 41.7 L MCV 88.7 MCH 31.9 MCHC 36.0 RDW 12.8 Plt Count 274 MPV 9.0 L Immature Gran % (Auto) 0.4 Neut % (Auto) 63.8 Lymph % (Auto) 25.3 [place] % (Auto) 8.6 Eos % (Auto) 1.3 Baso % (Auto) 0.6 Lymph # (Auto) 2.1 [place] # (Auto) 0.7 Eos # (Auto) 0.1 Baso # (Auto) 0.1 Abs Immat Gran (auto) 0.03 Absolute Neuts (auto) 5.3 Absolute Nucleated RBC 0.000 Nucleated RBC % (auto) 0.0 Sodium 139 Potassium 3.5 Chloride 103 Carbon Dioxide 24 Anion Gap 16 BUN 13 Creatinine 0.87 Estim Creat Clear Calc 118.5 Estimated GFR > 60 Random Glucose 99 Calcium 9.5 Total Bilirubin 0.8 AST 69 H ALT 91 H Alkaline Phosphatase 81 Total Protein 8.2 H Albumin 4.3 Urine Color Dark Yellow Urine Appearance Clear Urine pH 5.5 Ur Specific [place] >= 1.030 H Urine Protein Trace Urine Glucose (UA) Negative Urine Ketones Trace Urine Blood Negative Urine Nitrite Negative Ur Leukocyte Esterase Negative Urine Opiates Screen Not Detected Ur Buprenorphine Scrn Not Detected Ur Oxycodone Screen Not Detected Urine Methadone Screen Not Detected Urine Fentanyl Screen POSITIVE H Ur Barbiturates Screen Not Detected Ur Phencyclidine Scrn Not Detected Ur Amphetamines Screen POSITIVE H U Benzodiazepines Scrn Not Detected Urine Cocaine Screen POSITIVE H U Marijuana (THC) Screen POSITIVE H Ethyl Alcohol < 10 COVID-19 (MP) Negative COVID-19 Clin Com See Note DS: Summary Hospital Course Hospital Course: Patient is a 43-year-old male with history of PTSD, polysubstance abuse, antisocial personality disorder who presents for making suicidal comment. Patient is well known to this pattern chart writer from [facility]. Patient is upset that he is been admitted and refuses to sign in, saying he was never suicidal. Patient says he has been sober for the past year and relapsed this past week and was doing some Coke with girls. Patient said that he wanted to get with [facility] and [facility]; he denied he said anything about suicide when he called; patient said he was waiting for them to arrive when some police showed up and since patient had been doing cocaine or had some cocaine on him, and generally feels triggered by the police, was agitated that he was being brought to the hospital. Patient was restrained in the emergency room, sedated from restraint medications. Now on the unit, he says he does not need inpatient admission, he has not suicidal at all and never was and wants discharge. As pattern chart writer approached patient he was very friendly, calm, logical and reasonable saying how much he appreciates this pattern chart writer; earlier however with nursing staff he made threats about getting hostile or hitting people if he has not discharged which he denied to this pattern chart writer. Per collateral, [facility] contact at the [facility] reports that patient called and made a suicidal comment about walking into traffic zone ambulance was sent; patient got tired of waiting for the ambulance and called police/EMS and said he was suicidal who then picked him up and brought him to the hospital. Patient's uncle present on the unit who reported to pattern chart writer that patient has been sober for the past year because he was incarcerated, getting out of [facility] about a month ago during which time he spent thousands of dollars on drug use. Impression/clinical reasoning: Patient is at baseline. He has a long history of polysubstance abuse, antisocial behaviors and resistance to treatment. Patient has no history of estela or psychosis. He does not want treatment now and wants immediate discharge; should patient change his mind, he already has providers at the [facility]. Patient also has a place to stay. He denies any suicidality at all and denies that he made a suicidal comment to anyone at the [facility] or anywhere else. He says to pattern chart writer paraphrased, you know me, I am not suicidal... I don't want to hurt myself... Patient is well known to this pattern chart writer and to this pattern chart writer's knowledge he has never actually engaged in self-harm; he does however have a long history of making threats and adapting his story to achieve his own personal agendas. Though he denies it, It seems reasonably likely that patient did make a suicidal comment when [facility] per their [facility], which was in the context of coming down from a cocaine high and wanting some kind of help; however pattern chart writer agrees that whatever emotional dysregulation patient was feeling at that time, it has fully resolved and that patient is not in imminent risk for harm to self or others. Patient is able to be calm and in good behavioral and impulse control at will. His thinking is logical and linear and he is organized in speech and behavior. Patient does not want treatment and is threatening to be disruptive on the unit if he is not discharge. He does not require inpatient admission for safety and will not benefit from being forced to stay on the unit against his will; rather this would be counter therapeutic for him and the rest of the milieu. Patient's request for discharge honored. Time spent discussing smoking cessation with patient: 3 to 10 minutes Status at Discharge Functional status at discharge: independent ambulation Overall status at discharge: patient is back to baseline Time Spent with Patient Time attestation: Total time managing care of this patient today __40__ minutes. Time spent: Greater than 30 minutes Discharge Plan Discharge Anticipated Discharge Date/Time: 08/22/23 10:21 Patient Disposition: Prison Discharge Diagnosis: Adjustment disorder with disturbance of mood, behavior, in full remission Referrals: Physician,Daniel J [Primary Care Provider] - 1 Week Discharge Medications: Continued valacyclovir 500 mg tablet 500 mg PO DAILY dextroamphetamine-amphetamine 20 mg capsule,extended release 24hr 1 cap PO QAM trazodone 100 mg tablet 100 mg PO BEDTIME Discontinued naltrexone 50 mg tablet 50 mg PO DAILY Discharge Orders: Discharge Order (Routine); Ordered 08/22/23 Ordered By: Magdy Ramirez Diet: Regular diet Activity on Discharge: As tolerated Stand Alone Forms: Patient Portal Discharge page, Community Support Print Language: Welsh Care Plan Goals: Maintain mood and safe behaviors Take medications as prescribed Continue to pursue sobriety Practice coping skills Continue with outpatient providers and reach out to them as needed Health Concerns: Mood stability and behaviors Sobriety Plan of Treatment: Follow up with your PCP, psychiatric provider and other outpatient providers regarding above concerns Assessment: Risk assessment at time of discharge:? Patient was interviewed prior to disch arge and found to be fully oriented and without any SI or HI. Patient has improved insight and judgment and wants to continue treatment. Patient is not in imminent risk of harm to self or others and has a safety plan that includes presenting to the closest ER or calling 911 if feeling unsafe.? Patient has been observed closely by nursing and unit staff throughout admission and is not in imminent risk for harm to self or others Discharge Date/Time: 08/22/23 11:04
[2023-08-22] MEDS: Naloxone HCl Nasal TAKE HOME 4 MG SPRAY 8 MG NOSTRILALT (11:05)
== END 2023-08-22 11:04 | disposition home or self-care (01) | DRG 882 ==
LOC: HO.ED 08-21 07:41 → HO.PM5 08-21 18:27
PROVIDERS: Admitting Provider Psychiatry & Neurology Psychiatry; Emergency Provider Internal Medicine; Visit Provider Psychiatry & Neurology Psychiatry
DX: F43.25 Adjustment disorder with mixed disturbance of emotions and conduct (principal); F19.20 Other psychoactive substance dependence, uncomplicated; F43.12 Post-traumatic stress disorder, chronic; F60.2 Antisocial personality disorder; F90.9 Attention-deficit hyperactivity disorder, unspecified type; Z20.822 Contact with and (suspected) exposure to COVID-19; Z79.899 Other long term (current) drug therapy
CPT/HCPCS: 80053; 80307; 81003; 85025; 87635; 93005; 99285; J1630; J2060; S9485

== ENCOUNTER → 2023-08-21 16:52 | Outpatient (BNV) | payer OTHER, SELFPAY | PROVIDERS: Admitting Provider Psychiatry & Neurology Psychiatry; Emergency Provider Internal Medicine; Visit Provider Internal Medicine Cardiovascular Disease | DX: F43.12 Post-traumatic stress disorder, chronic (principal); F32.A Depression, unspecified | CPT/HCPCS: 93010 ==

== ENCOUNTER → 2023-08-21 17:30 | Outpatient (BNV) | payer OTHER, SELFPAY | PROVIDERS: Admitting Provider Psychiatry & Neurology Psychiatry; Emergency Provider Internal Medicine; Visit Provider Psychiatry & Neurology Psychiatry | DX: F60.2 Antisocial personality disorder (principal); F19.20 Other psychoactive substance dependence, uncomplicated; F43.25 Adjustment disorder with mixed disturbance of emotions and conduct; F43.12 Post-traumatic stress disorder, chronic; F90.9 Attention-deficit hyperactivity disorder, unspecified type | CPT/HCPCS: 99234; 99499 ==

== ENCOUNTER 2023-10-11 12:44 | Emergency (ER) | payer OTHER, SELFPAY ==
[2023-10-11 12:55] VITALS: BP 160/70; PULSE 96; O2SAT 98
[2023-10-11 12:59] VITALS: BP 139/94; PULSE 99; RESP 18; TEMP 36.5; O2SAT 99; BMI 29.0
--- NOTE | 2023-10-11 13:03 | ED_ITS ---
HPI - Psych General Chief Complaint: Psychiatric Symptoms Stated Complaint: CRISIS Time Seen by Provider: 10/11/23 12:51 Source: patient Mode of arrival: EMS Limitations: other (under the influence. ) History of Present Illness ED Provider: SHAILESH HPI Narrative: 43 yo male with PMH of adjustment disorder, anti social personality disorder, substance abuse, PTSD here with c/o needing to talk to CARE team as [facility] - recently just last used cocaine and drank. He has no SI/HI. He states he tried to get in but it didn't work out [facility]. [place] historian complaint: substance abuse and alcohol abuse Onset (ago): year(s) Duration: constant History of same: Yes Relieving factors: none Exacerbating factors: alcohol and drug use Context: recent alcohol abuse and recent drug abuse Associated psychiatric symptoms: none Associated symptoms: denies other symptoms Related Data Home Medications ?Medication ?Instructions ?Recorded ?Confirmed dextroamphetamine-amphetamine ER 1 cap PO QAM 08/21/23 08/21/23 20 mg 24hr capsule,extend release trazodone 100 mg tablet 100 mg PO BEDTIME 08/21/23 08/21/23 valacyclovir 500 mg tablet 500 mg PO DAILY 08/21/23 08/21/23 Allergies Allergy/AdvReac Type Severity Reaction Status Date / Time sildenafil [From VIAGRA] Allergy Mild UNKNOWN Verified 10/11/23 13:05 Penicillins [PCN] Allergy Unknown Verified 10/11/23 13:05 Review of Systems 2 Review of Systems: Constitutional : No Fever, No Chills ENT/Mouth : No Ear Pain, No Nasal Congestion, No sore throat Eyes: No Eye Pain, No Swelling, No Redness Cardiovascular : No Chest Pain, No SOB Respiratory : No Cough, No Sputum, No Dyspnea Gastrointestinal : No Nausea, No Vomiting, No Diarrhea, No Hematochezia, No Melena Genitourinary : No Dysuria, No Urinary Frequency, No Hematuria Musculoskeletal : No Myalgias Skin : No Skin Lesions, No rash Neuro : No Weakness, No Numbness, No Paresthesias, No Dizziness, No Headache Psych : positive Anxiety, positive Depression, no SI/HI All other systems reviewed and are negative [facility] Past Medical History Attestation statement: The following information was validated with the patient. Source: old records reviewed Medical History Antisocial personality disorder Adjustment disorder with mixed disturbance of emotions and conduct in remission Social History Social History Household Members: None Housing: Homeless Do you presently have visiting nurse or other home services: No Alcohol intake: former Patient Tobacco Use Status: Never used Tobacco Smoked in Last 30 Days: No e-Cigarette/Vaping Use: Never Used Second Hand Smoke Exposure: No Use of substances other than those prescribed or required for medical reasons: Yes Substance Use Type: Marijuana Advance Directives: No Advance Directives Information Provided: Yes Do you have a plan to hurt others: No Plan Physical Exam 2 Vital Signs: Vital Signs: Last Vital Signs Temp 97.7 F 10/11/23 13:09 Pulse 99 10/11/23 13:09 Resp 18 10/11/23 13:09 BP 139/94 H 10/11/23 13:09 Pulse Ox 99 10/11/23 13:09 O2 Del Method Room Air 10/11/23 13:09 BMI result Body Mass Index 29.0 Appearance: sleepy easily woken appears under the influence. Oriented X3. No acute distress. Eyes: Pupils equal, round and reactive to light. ENT: Pharynx normal. atraumatic Neck: Normal inspection. Neck supple. CVS: Normal heart rate and rhythm. Pulses normal. Respiratory: No respiratory distress. Breath sounds normal. Abdomen: Soft and nontender. Skin: Skin warm and dry. Normal skin color. Normal skin turgor. Extremities: No lower extremity edema. No calf ttp Neuro: Oriented X 3. No motor deficit. No sensory deficit. CN2-12 intact Medical Decision Making Medical Decision Making MDM Narrative: 43 yo male with PMH of adjustment disorder, anti social personality disorder, substance abuse, PTSD here with c/o needing to talk to crisis for what sounds like clearance [facility] to [facility] and drug use - at this time labs, CARE team consult ordered. He denies SI/HI. Differential Diagnosis Differential Diagnoses: The differential diagnosis associated with the presentation includes drug abuse, alcohol abuse Admission/Observation Consideration of admission/observation: Escalation of care including admission/observation considered physician observation started at 157pm pending CARE team assessment Consult Healthcare Provider Management of the patient was discussed with: Behavioral Health Provider Lab Data [facility] Lab Attestation statement: I reviewed the patient's lab results. 10/11/23 14:15 10/11/23 14:15 Labs: Lab Results 10/11/23 10/11/23 Range/Units 13:00 14:15 WBC 5.5 (4.8-10.8) X10*3/uL RBC 4.42 L (4.60-5.80) X10*6/uL Hgb 14.0 (14.0-18.0) g/dl Hct 39.7 L (42.0-52.0) % MCV 89.8 (80.0-98.0) fL MCH 31.7 (27.0-33.0) pg MCHC 35.3 (31.0-36.0) g/dl RDW 12.9 (11.0-16.0) % Plt Count 237 (160-400) X10*3/uL MPV 9.1 L (9.4-12.4) fL Immature Gran % (Auto) 0.2 (0.0-0.4) % Neut % (Auto) 65.2 (45-73) % Lymph % (Auto) 23.8 (20-40) % Sanborn % (Auto) 8.5 (2-11) % Eos % (Auto) 1.6 (0-4) % Baso % (Auto) 0.7 (0-2) % Lymph # (Auto) 1.3 (1.2-4.9) X10*3/uL [place] # (Auto) 0.5 (0.1-1.2) X10*3/uL Eos # (Auto) 0.1 (0.0-0.4) X10*3/uL Baso # (Auto) 0.0 (0.0-0.2) X10*3/uL Abs Immat Gran (auto) 0.01 (0.00-0.03) X10*3/uL Absolute Neuts (auto) 3.6 (2.0-8.3) x10*3/uL Absolute Nucleated RBC 0.000 (0.0-0.012) X10*3/uL Nucleated RBC % (auto) 0.0 (0.0-0.2) /100WBC Sodium 141 (135-145) mmol/L Potassium 3.7 (3.3-5.1) mmol/L Chloride 106 (96-108) mmol/L Carbon Dioxide 25 (22-29) mmol/L Anion Gap 14 (12-20) BUN 15 (9-16) mg/dL Creatinine 0.86 (0.5-1.4) mg/dL Estim Creat Clear Calc 109.9 Estimated GFR > 60 Random Glucose 119 H (60-115) mg/dL Calcium 9.7 (8.4-10.2) mg/dL Total Bilirubin 0.4 (0.0-1.0) mg/dL Direct Bilirubin 0.2 (0.0-0.5) mg/dL AST 47 H (5-37) U/L ALT 49 H (0-40) U/L Alkaline Phosphatase 86 (39-117) U/L Total Protein 7.7 (6.5-8.0) g/dL Albumin 4.0 (3.5-5.0) g/dL Urine Color Dark Yellow Urine Appearance Clear Urine pH 6.0 (5.0-9.0) Ur Specific Mat[place] >= 1.030 H (1.005-1.025) Urine Protein 100 (2+) H (Neg-Trace) mg/dL Urine Glucose (UA) Negative (Negative) mg/dL Urine Ketones 40 (Negative) mg/dL Urine Blood Negative (Negative) Urine Nitrite Negative (Negative) Ur Leukocyte Esterase Negative (Negative) Urine RBC 0-2 (0-2) /HPF Urine WBC 0-5 (0-5) /HPF Ur Squamous Epith Cells 0-2 (0-2) /HPF Urine Bacteria None Seen (None Seen) Hyaline Casts 11-20 (0-2) /LPF Urine Opiates Screen Not Detected (Not Detect) Ur Buprenorphine Scrn Not Detected (Not Detect) ng/mL Ur Oxycodone Screen Not Detected (Not Detect) ng/mL Urine Methadone Screen Not Detected (Not Detect) ng/mL Urine Fentanyl Screen POSITIVE H (Not Detect) Ur Barbiturates Screen Not Detected (Not Detect) Ur Phencyclidine Scrn Not Detected (Not Detect) Ur Amphetamines Screen Not Detected (Not Detect) U Benzodiazepines Scrn POSITIVE H (Not Detect) Urine Cocaine Screen POSITIVE H (Not Detect) U Marijuana (THC) Screen POSITIVE H (Not Detect) Ethyl Alcohol < 10 mg/dL External Record Review External record reviewed: Inpatient record Social Determinants Patient?s care significantly limited by Social Determinants of Health including: Problems related to primary support group Discharge Plan Discharge Clinical Impression: EtOH dependence, Cocaine abuse Patient Disposition: Still a Patient Prescriptions: No Action valacyclovir 500 mg tablet 500 mg PO DAILY dextroamphetamine-amphetamine 20 mg capsule,extended release 24hr 1 cap PO QAM trazodone 100 mg tablet 100 mg PO BEDTIME Interventions: [place]-Suicide Risk Severity Scale Last Done: 10/11/23 13:06 Print Language: Citizen [place]
[2023-10-11 13:09] VITALS: BP 139/94; PULSE 99; RESP 18; TEMP 36.5; O2SAT 99
[2023-10-11 13:15] LABS: Appearance Urine Clear; Color Urine Dark Yellow; Glucose Urine UA Negative (Negative); Leukocyte Esterase Urine Negative (Negative); Nitrite Urine Negative (Negative); Specific Gravity - Urine >= 1.030 (1.005-1.025); UMIC TRIGGER UACC YES; Urine Blood Negative (Negative); Urine Ketones 40 mg/dL (Negative); Urine Protein 100 (2+) mg/dL (Neg-Trace)
[2023-10-11 13:22] LABS: Amphetamine Screen Urine Not Detected (Not Detect); Barbiturates, Urine Not Detected (Not Detect); Benzodiazepines Screen Urine POSITIVE (Not Detect); Buprenorphine Scr Not Detected (Not Detect); Cannabinoid Screen Urine POSITIVE (Not Detect); Cocaine Screen Urine POSITIVE (Not Detect); Fentanyl, urine POSITIVE (Not Detect); Methadone Screen, Urine Not Detected (Not Detect); Opiate Screen Urine Not Detected (Not Detect); Oxycodone Screen Urine Not Detected (Not Detect); Phencyclidine Screen Urine Not Detected (Not Detect)
[2023-10-11 13:47] LABS: Bacteria Urine None Seen (None Seen); RBC Urine 0-2 /HPF (0-2); Squamous Epithelial Cell Urine 0-2 /HPF (0-2); WBC Urine 0-5 /HPF (0-5)
[2023-10-11 14:20] LABS: MANUAL DIFF FLAG NO
[2023-10-11 14:21] LABS: Basophils Percent Auto 0.7 % (0-2); Eosinophils Absolute Auto 0.1 X10*3/uL (0.0-0.4); Eosinophils Percent Auto 1.6 % (0-4); Hematocrit 39.7 % (42.0-52.0); Imm Gran Abs Auto 0.01 X10*3/uL (0.00-0.03); Imm Gran Pct Auto 0.2 % (0.0-0.4); Lymphocytes Absolute Auto 1.3 X10*3/uL (1.2-4.9); Lymphocytes Percent Auto 23.8 % (20-40); Mean Corpuscular HGB Conc 35.3 g/dl (31.0-36.0); Mean Corpuscular Hemoglobin 31.7 pg (27.0-33.0); Mean Corpuscular Volume 89.8 fL (80.0-98.0); Mean Platelet Volume 9.1 fL (9.4-12.4); Monocytes Absolute Auto 0.5 X10*3/uL (0.1-1.2); Monocytes Percent Auto 8.5 % (2-11); Neutrophils Absolute Auto 3.6 x10*3/uL (2.0-8.3); Neutrophils Percent Auto 65.2 % (45-73); Platelet Count 237 X10*3/uL (160-400); Red Blood Count 4.42 X10*6/uL (4.60-5.80); Red Cell Distribution Width 12.9 % (11.0-16.0); White Blood Count 5.5 X10*3/uL (4.8-10.8)
[2023-10-11 14:42] LABS: Alanine Aminotransferase 49 U/L (0-40); Alkaline Phosphatase 86 U/L (39-117); Anion Gap 14 (12-20); Aspartate Amino Transferase 47 U/L (5-37); Bilirubin Direct 0.2 mg/dL (0.0-0.5); Bilirubin Total 0.4 mg/dL (0.0-1.0); Blood Urea Nitrogen 15 mg/dL (9-16); Calcium 9.7 mg/dL (8.4-10.2); Carbon Dioxide 25 mmol/L (22-29); Chloride 106 mmol/L (96-108); Creatinine Clr Calc Pharmacy 109.9; Estimated Glomerular Filt Rate > 60; Ethanol < 10 mg/dL; Glucose Random 119 mg/dL (60-115); Potassium 3.7 mmol/L (3.3-5.1); Sodium 141 mmol/L (135-145); Total Protein 7.7 g/dL (6.5-8.0)
[2023-10-11] MEDS: LORazepam 1 MG TABLET 2 MG PO (17:16)
--- NOTE | 2023-10-11 22:53 | MHC.CARE ---
No Dual beds available, bed search is exhausted for tonight
[2023-10-12] MEDS: LORazepam 1 MG TABLET 2 MG PO ×3 (05:21→21:24)
--- NOTE | 2023-10-12 05:24 | PC.NURSE ---
Patient slept through the night, no distress observed/reported except CIWA score was 13 administered Ativan 2 mg PO as ordered at 0521 pending effect, patient was assessed by care team, disposition is voluntary dual diagnosis bed search, no behavior and safety concerns, will continue to monitor.
[2023-10-12 05:32] VITALS: BP 127/79; PULSE 61; RESP 18; TEMP 37.1; O2SAT 99
--- NOTE | 2023-10-12 08:04 | PC.NURSE ---
Assumed care of patient at 0645, patient appears to be sleeping, respirations even and unlabored, no apparent distress noted. Continue plan of care for dual dx bedsearch
--- NOTE | 2023-10-12 11:42 | PC.NURSE ---
Patient requesting something to help him sleep, he is also reporting increased agitation and requesting medication for it. Patient demanding to know what is going on and what the next steps are. This RN calmly explained that we are waiting for a dual bed to open up. He reports well it better be a nice facility, [facility], I ain't going to no [facility] . I'm withdrawin, I'm just gonna go do crack and drink with prostitutes . Patient reporting that he needs something to knock him out since he needs to sleep . Patient once again relays that he wants to go to a nice facility with good services . This RN educated patient that any of the facilities we send him to are capable of caring for him in the any capacity that is needed. Patient continues to make rude remarks under his breath as he walks away from nurses station. Marlen, CARE team met with patient briefly to provide update on situation
[2023-10-12] MEDS: hydrOXYzine HCL 50 MG TABLET PO (11:53)
--- NOTE | 2023-10-12 11:57 | PC.NURSE ---
patient reports hydroxyzine dont work on me, I need somethin stronger . Patient took medication, laid back down and now appears to be in no apparent distress
--- NOTE | 2023-10-12 12:05 | MHC.CARE ---
Form Setter/Driver conducted Dual Bedsearch; calls placed to [facility], and [facility]. No beds available. [facility]. Bedsearch exhausted
[2023-10-12 21:25] VITALS: BP 146/97; PULSE 107; RESP 18; TEMP 36.6; O2SAT 97
--- NOTE | 2023-10-13 06:06 | PC.NURSE ---
Patient slept through the night, no distress observed/reported, disposition per care team is voluntary dual diagnosis bed search, asymptomatic of ETOH withdrawal at this time, no behavior and safety concerns, will continue to monitor.
[2023-10-13 06:24] VITALS: BP 143/88; PULSE 85; RESP 17; TEMP 36.5; O2SAT 99
[2023-10-13] MEDS: LORazepam 1 MG TABLET 2 MG PO ×3 (07:07→17:54)
--- NOTE | 2023-10-13 08:56 | PC.NURSE ---
patient comes up to the nurses station stating I am very unimpressed with everything, I am not happy about the food and I want to see a doctor . This RN expressed and apology regarding his upset and asked if there was anything we could do to help. patient states that his main concern is not getting good food. This RN educated patient that we get a certain set of meals and diet trays and while we are capable of calling the kitchen to request certain meals, it is not realistic to cater to every individual person's preferences. Patient returned to his room but re-emerged from his room disgruntled. Patient expressed that he was frustrated that he has not received breakfast, this RN educated patient that he already received breakfast (prior to this RN coming in) and that he had eaten half of it. Patient returned to his room and became angry that his food as cold. This RN explained once again that he had eaten half of his breakfast and the other half was left on the tray for over an hour. patient states well I think that it ridiculous that we get cold food and it tastes like crap , patient then proceeded to toss his food on the table. Patient then stated I just want to be sedated and not wake up to shit food This RN educated patient that the responsibility of the care team is not to sedate him but to manage his withdrawals. This RN educated pt that his CIWA scores have been in an acceptable range where Ativan appears to be covering withdrawal symptoms and further medication is not medically necessary at this time, should that change, the plan of care will change but over the past two days, 2mg Ativan PRN Q3h has been working well. Patient verbalizes understanding that our job is not to sedate him but to treat his withdrawals.
[2023-10-13] MEDS: hydrOXYzine HCL 50 MG TABLET PO (09:11)
--- NOTE | 2023-10-13 09:17 | PC.NURSE ---
late entry: Patient politely requesting additional medication to calm his anxiety, Atarax 50mg provided
[2023-10-13 14:44] VITALS: RESP 14
[2023-10-13] MEDS: Nicotine Polacrilex 2 MG GUM BUCCAL (20:00)
--- NOTE | 2023-10-13 20:02 | PC.NURSE ---
pt requested nicotine gum, dr. garrett notified and gave verbal orders to medicate patient- nicotine patch was also ordered if he wants the patch at a later time.
[2023-10-13] MEDS: traZODone HCL 100 MG TABLET PO (20:26)
--- NOTE | 2023-10-13 20:28 | PC.NURSE ---
pt requested his trazodone, provider notified, order placed based upon pts med req- pt medicated per order
--- NOTE | 2023-10-13 21:14 | PC.NURSE ---
this rn assumed care of pt, pt resting in common area watching tv at this time. respirations even and unlabored, no acute distress noted.
--- NOTE | 2023-10-13 21:26 | PC.NURSE ---
pt provided with snacks per request at this time.
--- NOTE | 2023-10-14 | ECG_ITS ---
Test Reason : CHECK QT INTEVAL Blood Pressure : / mmHG Vent. Rate : 089 BPM Atrial Rate : 089 BPM P-R Int : 134 ms QRS Dur : 088 ms QT Int : 332 ms P-R-T Axes : 013 003 -05 degrees QTc Int : 403 ms Normal sinus rhythm Normal ECG When compared with ECG of 21-AUG-2023 16:52, No significant change was found Referred By: Generic ED Physician Electronically Signed By:Nadeem Meyer
--- NOTE | 2023-10-14 05:39 | PC.NURSE ---
pt resting in common area, no acute distress noted. respirations even and unlabored.
[2023-10-14 06:21] VITALS: BP 119/79; PULSE 80; RESP 16; TEMP 36.8; O2SAT 96
--- NOTE | 2023-10-14 06:49 | PC.NURSE ---
Assumed car of patient at 0645. Patient is observed resting in the common area. No distress observed and breathing is even and unlabored.
[2023-10-14] MEDS: valACYclovir HCL 500 MG TABLET PO (08:41)
[2023-10-14] MEDS: LORazepam 1 MG TABLET 2 MG PO ×2 (08:41→11:43)
[2023-10-14] MEDS: Dextroamphetamine/Amphetamine XR 10 MG CAP.ER.24H 20 MG PO (08:41)
[2023-10-14] MEDS: Nicotine Polacrilex 2 MG GUM BUCCAL (12:49)
[2023-10-14 14:08] VITALS: BP 119/79; PULSE 80; RESP 16; TEMP 36.8; O2SAT 96
== END 2023-10-14 14:23 | disposition home or self-care (01) ==
PROVIDERS: Emergency Provider Emergency Medicine
DX: F43.10 Post-traumatic stress disorder, unspecified (principal); F10.20 Alcohol dependence, uncomplicated; F14.10 Cocaine abuse, uncomplicated; Y90.0 Blood alcohol level of less than 20 mg/100 ml; F12.90 Cannabis use, unspecified, uncomplicated; F43.25 Adjustment disorder with mixed disturbance of emotions and conduct; Z51.81 Encounter for therapeutic drug level monitoring; Z79.899 Other long term (current) drug therapy
CPT/HCPCS: 36415; 80048; 80076; 80307; 81001; 85025; 93005; 99285; S9485

== ENCOUNTER → 2023-10-14 12:00 | Outpatient (BNV) | payer OTHER, SELFPAY | PROVIDERS: Emergency Provider Emergency Medicine; Visit Provider Internal Medicine Cardiovascular Disease | DX: F60.2 Antisocial personality disorder (principal); F10.20 Alcohol dependence, uncomplicated; F43.12 Post-traumatic stress disorder, chronic | CPT/HCPCS: 93010 ==

== ENCOUNTER 2023-11-23 08:04 | Emergency (ER) | payer OTHER, SELFPAY ==
--- NOTE | 2023-11-23 | ECG_ITS ---
Test Reason : CHEST PAIN Blood Pressure : / mmHG Vent. Rate : 087 BPM Atrial Rate : 087 BPM P-R Int : 140 ms QRS Dur : 088 ms QT Int : 370 ms P-R-T Axes : 048 013 -11 degrees QTc Int : 445 ms Normal sinus rhythm Normal ECG When compared with ECG of 14-OCT-2023 12:00, No significant change was found Referred By: Generic ED Physician Electronically Signed By:KVNG TREVINO
[2023-11-23 08:33] VITALS: BP 162/110; PULSE 112; RESP 16; TEMP 36.9; O2SAT 98; BMI 29.0
[2023-11-23 08:37] VITALS: RESP 16
--- NOTE | 2023-11-23 08:40 | PC.NURSE ---
patient reporting increased crack use over the few weeks d/t life stressors he is unwilling to disclose. He reports he last used just prior to arrival to the ER, he also endorses increased alcohol use in conjunction with the crack. He denies suicidal or homicidal thoughts, he does appear paranoid about the police. He seems to be having auditory hallucinations, thinking that the police are talking about him despite there being no police in the pod. Pt requesting something to help him calm down at this time
[2023-11-23] MEDS: LORazepam 1 MG TABLET 2 MG PO ×2 (10:04→17:07)
--- NOTE | 2023-11-23 10:55 | PC.NURSE ---
Patient refusing to give blood work or urine sample
--- NOTE | 2023-11-23 11:13 | ED.GENADULT ---
HPI - General Adult General Chief complaint: ETOH/Substance Use Stated complaint: Crisis Time Seen by Provider: 11/23/23 08:55 Source: patient Mode of arrival: ambulatory Limitations: no limitations History of Present Illness ED Provider: FABIANO CUEVAS PA-C HPI narrative: 43 year old male with pmhx significant for adjustment disorder, antisocial personality disorder, substance abuse, PTSD presents to the ED today requesting to speak with Care Team. Patient endorses paranoia, telling me that the [employer] is out to get him. He states that they have been watching him and followed him to a nearby hotel, prompting him to come to the ED. Additionally endorses smoking crack cocaine daily. Last used [employer] in ED. Denies other ilicit substance use. Admits to daily etoh consumption. Patient reports consuming alcohol today however declines to tell me when he last drank or how much he consumed. He endorses history of etoh withdrawal however denies history of etoh withdrawal seizures or DT. Denies SI/HI. Denies VH/TH. Denies any physical complaints at present. Related Data Home Medications ?Medication ?Instructions ?Recorded ?Confirmed No Known Home Meds 11/23/23 11/23/23 Allergies Allergy/AdvReac Type Severity Reaction Status Date / Time sildenafil [From VIAGRA] Allergy Mild UNKNOWN Verified 11/23/23 08:35 Penicillins [PCN] Allergy Unknown Verified 11/23/23 08:35 Review of Systems Review of Systems: Yes all other systems are reviewed and are negative PMFSH Past Medical History Attestation statement: The following information was validated with the patient. Source: old records reviewed and nursing notes reviewed Medical History Antisocial personality disorder Adjustment disorder with mixed disturbance of emotions and conduct in remission Social History Social History Household Members: None Housing: Homeless Do you presently have visiting nurse or other home services: No Alcohol intake: former Patient Tobacco Use Status: Never used Tobacco Smoked in Last 30 Days: Yes e-Cigarette/Vaping Use: Never Used Second Hand Smoke Exposure: No Use of substances other than those prescribed or required for medical reasons: Yes Substance Use Type: Crack/Cocaine Substance Use Frequency: Chronic Longstanding Any prior treatment program specific to substance use: Yes Advance Directives: No Physical Exam ED Vital Signs: Vital Signs - 24 hr 11/23/23 08:33 11/23/23 08:37 Temperature 98.4 F Pulse Rate 112 H Respiratory Rate 16 16 Blood Pressure 162/110 H Pulse Oximetry 98 Oxygen Delivery Method Room Air BMI result Body Mass Index 29.0 Hypertensive, tachycardic General: pacing around the room, looking over his shoulder, whispering to self Skin: Warm, dry, intact. No rashes or lesions. Head: Normocephalic, atraumatic. EENT: Hearing is intact b/l. Conjunctiva clear. Sclera is anicteric. PERRLA. EOM intact. Moist mucous membranes.? Cardiac: Chest wall symmetric. RRR. Lungs: Normal respiratory effort without accessory muscle use. CTA bilaterally. Ext: Upper and lower extremities atraumatic, without tenderness, deformity, swelling or erythema. Full ROM throughout. Neuro: AOx3. CN 2-12 grossly intact. Ambulating with steady gait. No tremors or asterixis. No tongue fasiculations. Psych: Paranoid thought process. Pressured speech. Course Course Course Narrative: 929 -- CIWA 10 > ativan ordered. will continue to monitor. 1130 -- patient stable at the end of my shift. CIWA 4. Sign out given to Daniela BOWEN pending medical clearance and care team consultation. Medications Administered Discontinued Medications Generic Name Dose Route Start Last Admin Trade Name Freq PRN Reason Stop Dose Admin Lorazepam 2 mg 11/23/23 09:46 11/23/23 10:04 Lorazepam 1 Mg Tablet PO 11/23/23 09:47 2 mg ONCE ONE Administration Medical Decision Making Medical Decision Making [facility] Narrative: 43 year old male with pmhx significant for adjustment disorder, antisocial personality disorder, substance abuse, PTSD presents to the ED today requesting to speak with Care Team. Patient hypertensive and tachycardic. Vitals otherwise WNL. On my initial evaluation, patient pacing around the room, looking over his shoulder, whispering to self. Paranoid thought process. CN grossly intact. RRR. Lungs CTA b/l. No tremors or asterixis. No tongue fasiculations. Differential diagnosis includes polysubstance use, acute psychosis, anxiety, depression, etoh abuse, etoh withdrawal, electrolyte derangement Plan for labs, UA, UDS, ethanol, CIWA, re-evaluation. > Medical clearance for care team evaluation Differential Diagnosis Differential Diagnoses: The differential diagnosis associated with the presentation includes As above Admission/Observation Consideration of admission/observation: Escalation of care including admission/observation considered External Record Review External record reviewed: Inpatient record Chronic Conditions Patient?s care impacted by: Other (ETOH abuse, substance use disorder) Social Determinants Patient?s care significantly limited by Social Determinants of Health including: Alcoholism and drug addiction in family and Other Social Determinant of Health Critical Care Time Critical Care Time Critical Care Time: No Discharge Plan Discharge Clinical Impression: Paranoid delusion, Polysubstance use disorder Patient Disposition: Still a Patient Prescriptions: No Action No Known Home Meds Print Language: Macanese
[2023-11-23 17:00] VITALS: BP 139/103; PULSE 86; RESP 18; TEMP 36.3; O2SAT 98
--- NOTE | 2023-11-23 17:56 | PC.NURSE ---
Pt demanding an IM injection for his alcohol withdrawal. Pt was recently medicated with PO Ativan for withdrawal symptoms. Current CIWA score of 1. This RN notified patient that his current presentation does not necessitate IM medication at this. Pt reports that the only way he can get his blood drawn due to his fear of needles is to receive an IM injection of benzos . This RN once again educated him that his medical status does not necessitate an IM injection and therefore he will not be receiving additional medication. Pt becoming agitated, then began swearing at staff and interrupting this RN while attempting to de-escalate. Pt states I am the doctor in this scenario, I know what is best for my body and it needs benzos . Pt then proceeded tell this RN that he aint getting a fuckin needle in his arm . Marlen, CARE team then met with the patient to explain that in order to bedsearch him he needs to have blood work done. Pt proceeded to interrupt Marlen while she was explaining the process and was being rude to other staff. This RN spoke with NATHAN Ruiz who was in agreeance that patient can be discharged since he is not participating in care and he is being rude with staff. Pt escorted out by security once discharge papers were available.
--- NOTE | 2023-11-23 18:07 | MHC.EDTECH ---
talking to patient about blood draw and told me to fuck myself and other words
[2023-11-23 18:28] VITALS: BP 139/103; PULSE 86; RESP 18; TEMP 36.3; O2SAT 98
== END 2023-11-23 18:30 | disposition home or self-care (01) ==
PROVIDERS: Emergency Provider Emergency Medicine Emergency Medical Services
DX: F60.0 Paranoid personality disorder (principal); F19.159 Other psychoactive substance abuse with psychoactive substance-induced psychotic disorder, unspecified; R07.9 Chest pain, unspecified; R00.0 Tachycardia, unspecified; I10 Essential (primary) hypertension; F43.20 Adjustment disorder, unspecified; F60.2 Antisocial personality disorder; F43.10 Post-traumatic stress disorder, unspecified; F19.10 Other psychoactive substance abuse, uncomplicated
CPT/HCPCS: 93005; 99285; S9485

== ENCOUNTER 2023-12-20 22:52 | Emergency (ER) | payer OTHER, SELFPAY ==
[2023-12-20 23:03] VITALS: BP 150/108; PULSE 100; O2SAT 98
[2023-12-20 23:30] VITALS: BP 133/96; PULSE 91; RESP 16; TEMP 36.8; O2SAT 96; BMI 26.6
--- NOTE | 2023-12-21 00:23 | ED_ITS ---
HPI - General Adult General Chief complaint: General Medical Stated complaint: ETOH Time Seen by Provider: 12/20/23 23:52 Source: patient Mode of arrival: EMS Limitations: no limitations History of Present Illness ED Provider: bienvenido LEY narrative: Patient's history of polysubstance abuse codeine fentanyl and alcohol [facility] patient has denied any SI or HI denied any significant depression does not want to go to detox does not know why he came to the ER Related Data Home Medications ?Medication ?Instructions ?Recorded ?Confirmed No Known Home Meds 11/23/23 11/23/23 Allergies Allergy/AdvReac Type Severity Reaction Status Date / Time sildenafil [From VIAGRA] Allergy Mild UNKNOWN Verified 12/20/23 23:31 Penicillins [PCN] Allergy Unknown Verified 12/20/23 23:31 Review of Systems Review of Systems: Yes all other systems are reviewed and are negative PMFSH Past Medical History Medical History Antisocial personality disorder Adjustment disorder with mixed disturbance of emotions and conduct in remission Social History Social History Household Members: None Housing: Homeless Do you presently have visiting nurse or other home services: No Alcohol intake: former Patient Tobacco Use Status: Never used Tobacco e-Cigarette/Vaping Use: Never Used Second Hand Smoke Exposure: No Substance Use Type: Crack/Cocaine Advance Directives: No Advance Directives Information Provided: Yes Physical Exam ED Vital Signs: Vital Signs - 24 hr 12/20/23 23:30 12/21/23 00:30 Temperature 98.2 F 99.2 F Pulse Rate 91 93 Respiratory Rate 16 17 Blood Pressure 133/96 H 123/83 Pulse Oximetry 96 100 Oxygen Delivery Method Room Air Room Air BMI result Body Mass Index 26.6 Appearance: Alert. Oriented X3. No acute distress. etoh Eyes: PERRLA, No Nystagmus ENT: Pharynx normal. Oral Mucosa moist Neck: Normal inspection. Neck supple. CVS: Normal heart rate and rhythm. Pulses normal. Respiratory: No respiratory distress. Equal air entry bilateral, no wheezing/rales/rhonchi Abdomen: Soft and nontender. Bowel sounds are present, no mass palpable, no CVA tenderness Skin: Skin warm and dry. Normal skin color. Normal skin turgor. Extremities: No lower extremity edema. No calf tenderness Neuro: Oriented X 3. No motor deficit. No sensory deficit.No cerebellar signs , cranial nerves II-XII intact Medical Decision Making Medical Decision Making [facility] Narrative: Patient has refused blood draw urine positive for fentanyl and cocaine will observe him in the ER discharge once sober as patient does not want any help Lab Data [facility] Lab Attestation statement: I reviewed the patient's lab results. Labs: Lab Results 12/21/23 Range/Units 00:39 Urine Opiates Screen Not Detected (Not Detect) Ur Buprenorphine Scrn Not Detected (Not Detect) ng/mL Ur Oxycodone Screen Not Detected (Not Detect) ng/mL Urine Methadone Screen Not Detected (Not Detect) ng/mL Urine Fentanyl Screen POSITIVE H (Not Detect) Ur Barbiturates Screen Not Detected (Not Detect) Ur Phencyclidine Scrn Not Detected (Not Detect) Ur Amphetamines Screen Not Detected (Not Detect) U Benzodiazepines Scrn Not Detected (Not Detect) Urine Cocaine Screen POSITIVE H (Not Detect) U Marijuana (THC) Screen POSITIVE H (Not Detect) Discharge Plan Discharge Clinical Impression: Polysubstance (including opioids) dependence with physiol dependence Patient Disposition: Still a Patient Prescriptions: No Action No Known Home Meds Print Language: [place]
[2023-12-21 00:30] VITALS: BP 123/83; PULSE 93; RESP 17; TEMP 37.3; O2SAT 100
--- NOTE | 2023-12-21 00:41 | MHC.EDTECH ---
At This present time patient is refusing lab work and EKG Plan of care is ongoing
[2023-12-21 01:00] LABS: Amphetamine Screen Urine Not Detected (Not Detect); Barbiturates, Urine Not Detected (Not Detect); Benzodiazepines Screen Urine Not Detected (Not Detect); Buprenorphine Scr Not Detected (Not Detect); Cannabinoid Screen Urine POSITIVE (Not Detect); Cocaine Screen Urine POSITIVE (Not Detect); Fentanyl, urine POSITIVE (Not Detect); Methadone Screen, Urine Not Detected (Not Detect); Opiate Screen Urine Not Detected (Not Detect); Oxycodone Screen Urine Not Detected (Not Detect); Phencyclidine Screen Urine Not Detected (Not Detect)
--- NOTE | 2023-12-21 03:59 | PC.NURSE ---
pt is resting comfortably in stretcher with eyes closed, green katerine off and positioned next to his pillow, covered by a blanket (head is exposed and visualized). He appears to be in no acute distress at this time. RN to consult MD to determine plan of care
[2023-12-21 05:42] VITALS: BP 136/89; PULSE 59; RESP 17; TEMP 36.5; O2SAT 99
[2023-12-21 07:24] VITALS: BP 136/89; PULSE 59; RESP 17; TEMP 36.5; O2SAT 99
== END 2023-12-21 07:31 | disposition home or self-care (01) ==
PROVIDERS: Emergency Provider Internal Medicine
DX: F19.20 Other psychoactive substance dependence, uncomplicated (principal); F32.A Depression, unspecified; F60.2 Antisocial personality disorder; F43.25 Adjustment disorder with mixed disturbance of emotions and conduct; F43.12 Post-traumatic stress disorder, chronic; F90.9 Attention-deficit hyperactivity disorder, unspecified type; F10.20 Alcohol dependence, uncomplicated
CPT/HCPCS: 80307; 99284

== ENCOUNTER 2024-01-18 14:54 | Emergency (ER) | payer OTHER, SELFPAY ==
--- NOTE | ~2024-01-18 | CT_ITS ---
EXAMINATION: CT HEAD WITHOUT CONTRAST CLINICAL INFORMATION: Altered mental status. Unsteady gait. COMPARISON: None available. TECHNIQUE: Contiguous axial imaging was performed from the skull base to vertex without intravenous administration of contrast. This CT examination was performed using dose optimization techniques as appropriate, variously including the following: *Automated exposure control *Adjustment of mA and/or kV according to patient size (this includes techniques or standardized protocols for targeted exams where dose is matched to indication/reason for exam; i.e. extremities or head) *Use of iterative reconstruction technique DLP: 705 mGy-cm FINDINGS: There is no intracranial mass, hemorrhage, or cerebral edema. Ventricles and sulci normal. No extra-axial fluid collection. Soft tissues/scalp: Normal. Osseous structures/calvarium: Normal. Sinuses: Mild mucosal thickening ethmoid sinuses Mastoid air cells: Clear. CT/CT head/brain wo IV con IMPRESSION: No acute intracranial pathology. Electronically signed by: Adrian Fong MD 01/18/2024 03:45 PM EDT
--- NOTE | 2024-01-18 15:03 | ED.GENADULT ---
HPI - General Adult General Chief complaint: ETOH/Substance Use Stated complaint: LETHARGIC, ETOH & MARIJUANA USE PER EMS Time Seen by Provider: 01/18/24 15:00 Source: patient and EMS Mode of arrival: EMS Limitations: other (not cooperative ) History of Present Illness ED Provider: Jan BOWEN HPI narrative: 43-year-old male history of antisocial personality disorder, adjustment disorder with mixed disturbances of emotions and conduct and written admission, PTSD, polysubstance abuse, IVDA, ethanol dependence, ADHD presenting to the emergency department after bystanders called police because patient was found in a by standards home sleeping on the couch, he was drinking earlier in the day and endorses marijuana however denies any other drugs. He arrives he tells me he does not want to speak to anybody. He is not suicidal not homicidal. No medical complaints. He is asking for a sandwich. Denies hallucinations. He states he just wants to be left alone. Poor historian. Related Data Home Medications ?Medication ?Instructions ?Recorded ?Confirmed No Known Home Meds 11/23/23 11/23/23 Allergies Allergy/AdvReac Type Severity Reaction Status Date / Time sildenafil [From VIAGRA] Allergy Mild UNKNOWN Verified 01/18/24 15:09 Penicillins [PCN] Allergy Unknown Verified 01/18/24 15:09 Review of Systems Review of Systems: Yes all other systems are reviewed and are negative PMFSH Past Medical History Attestation statement: The following information was validated with the patient. Source: old records reviewed and nursing notes reviewed Medical History Antisocial personality disorder Adjustment disorder with mixed disturbance of emotions and conduct in remission Social History Social History Household Members: None Housing: Homeless Do you presently have visiting nurse or other home services: No Alcohol intake: former Patient Tobacco Use Status: Never used Tobacco e-Cigarette/Vaping Use: Never Used Second Hand Smoke Exposure: No Substance Use Type: Crack/Cocaine Do you have a plan to hurt others: No Plan Physical Exam ED Vital Signs: Vital Signs - 24 hr 01/18/24 15:05 Temperature 97.6 F Pulse Rate 88 Respiratory Rate 18 Blood Pressure 126/74 Pulse Oximetry 95 Oxygen Delivery Method Room Air BMI result Body Mass Index 30.1 vss Appearance: Alert.? Oriented X3.? No acute distress.? Head: Normocephalic, atraumatic, no step-offs or deformities Eyes: Pupils equal, round and reactive to light. CVS: Normal heart rate and rhythm.? Pulses normal.? Respiratory: No respiratory distress.? Breath sounds normal.? Abdomen: Soft and nontender.? Skin: Skin warm and dry.? Normal skin color.? Normal skin turgor.? Extremities: No lower extremity edema.? No calf ttp. 5/5 strength to bilateral upper and lower extremities Neuro: Oriented X 3.? No motor deficit.? No sensory deficit. CN 2-12 intact Course Reevaluation(s) Reevaluation #1: Patient adamantly refusing labs and urine. Allowed CT scan however. Time: 15:39 Reevaluation #2: Sign out to Bonnie EVANS Time: 15:39 Medical Decision Making Medical Decision Making [facility] Narrative: 43-year-old male presents with alcohol intoxication and marijuana use, uncooperative on arrival. Requesting food. Denies trauma. Was found sleeping on somebody's bed. Unclear history. Not suicidal or homicidal. Alert and oriented x4. No evidence of trauma on exam. Physical exam benign History and physical exam concerning for polysubstance abuse versus ethanol intoxication. Unlikely metabolic derangements, intracranial hemorrhage, stroke, posterior stroke. Plan labs, imaging, urine. Differential Diagnosis Differential Diagnoses: The differential diagnosis associated with the presentation includes (History and physical exam concerning for polysubstance abuse versus ethanol intoxication. Unlikely metabolic derangements, intracranial hemorrhage, stroke, posterior stroke.) Admission/Observation Consideration of admission/observation: Escalation of care including admission/observation considered (possible ) Consult Healthcare Provider Management of the patient was discussed with: Behavioral Health Provider Lab Data [facility] Lab Attestation statement: I reviewed the patient's lab results. Independent Interpretation I performed an independent interpretation of an: CT Scan Radiology Impression Discussion of test interpretation with radiology: I have reviewed the radiologist's reading. External Record Review External record reviewed: Inpatient record, Office record, Outpatient record, Prior outpatient labs, Prior outpatient radiology, Primary care record and Outside ED record Chronic Conditions Patient?s care impacted by: Other (see hpi ) Critical Care Time Critical Care Time Critical Care Time: No Discharge Plan Discharge Clinical Impression: Chronic post-traumatic stress disorder, Antisocial personality disorder, Adjustment disorder with mixed disturbance of emotions and conduct in remission Patient Disposition: Still a Patient Prescriptions: No Action No Known Home Meds Print Language: Thai
[2024-01-18 15:05] VITALS: BP 118/72; BP 126/74; PULSE 88; PULSE 89; RESP 18; TEMP 36.4; O2SAT 95; O2SAT 96; BMI 30.1
--- NOTE | 2024-01-18 15:32 | MHC.EDTECH ---
assumed care of pt at 1520, [facility] geeta attempted to private branch exchange repairer pt, pt refused to remove shirt, refused to give urine sample, refused blood draw, RN aware.
--- NOTE | 2024-01-18 16:05 | PC.NURSE ---
pt changed over by security, currently refusing to cooperate for labs/urine at this time.
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
[2024-01-18 21:58] VITALS: BP 139/91; PULSE 84; RESP 19; TEMP 36.5; O2SAT 97
[2024-01-19 00:33] VITALS: BP 139/91; PULSE 84; RESP 19; TEMP 36.5; O2SAT 97
== END 2024-01-18 23:00 | disposition home or self-care (01) ==
PROVIDERS: Emergency Provider Emergency Medicine Emergency Medical Services
DX: F43.12 Post-traumatic stress disorder, chronic (principal); F60.2 Antisocial personality disorder; F43.25 Adjustment disorder with mixed disturbance of emotions and conduct; R41.82 Altered mental status, unspecified; R26.89 Other abnormalities of gait and mobility; F90.9 Attention-deficit hyperactivity disorder, unspecified type; F10.20 Alcohol dependence, uncomplicated; F19.10 Other psychoactive substance abuse, uncomplicated
CPT/HCPCS: 70450; 99284